=== PATIENT | male | born 1985 | race African-American/Black ===

== ENCOUNTER 2016-08-27 14:39 | Inpatient (IN) | payer MEDICAID, OTHER ==
[~2016-08-27] VITALS: Ht 165.1 cm; Wt 87.7 kg
[~2016-08-27 14:39] MED LIST: AMLO2.5T PO; MIRT30 PO; RISP1TAB89 PO
[2016-08-27 15:23] LABS: BASOPHILS % (AUTO) 0.3 % (0.0-2.0); EOSINOPHILS % (AUTO) 0.2 % (1.0-6.0); HEMATOCRIT 52.8 % (41-53); HEMOGLOBIN 17.8 g/dL (13.5-17.5); LYMPHOCYTES # (AUTO) 1.6 K/uL (1.0-4.8); LYMPHOCYTES % (AUTO) 25.6 % (22.0-44.0); MEAN CORPUSCULAR HEMOGLOBIN 30.7 pg (26.0-34.0); MEAN CORPUSCULAR HGB CONC 33.7 G/dL (31.0-37.0); MEAN CORPUSCULAR VOLUME 91 fL (80-100); MONOCYTES # (AUTO) 0.5 K/uL (0.1-1.0); MONOCYTES % (AUTO) 8.9 % (2.0-9.0); PLATELET COUNT (AUTO) 294 K/uL (150-450); RED BLOOD CELL COUNT(AUTO) 5.79 MIL/uL (4.50-5.90); WHITE BLOOD COUNT (AUTO) 6.1 K/uL (4.5-11.0)
[2016-08-27 15:30] LABS: ANION GAP 11 mmol/L (8-16); CALCIUM, TOTAL 9.3 mg/dL (8.8-10.5); CARBON DIOXIDE 30 mmol/L (22-29); CHLORIDE 100 mmol/L (98-107); CREATININE 1.02 mg/dL (0.60-1.30); GLOMERULAR FILTR. RATE CALC > 60 mL/min (>60); POTASSIUM 3.1 mmol/L (3.5-5.1); SODIUM SERUM 141 mmol/L (136-145); UREA NITROGEN, BLOOD 8 mg/dL (7-18)
[2016-08-27 15:34] LABS: ALANINE AMINOTRANSFERASE 61 U/L (12-78); ALBUMIN 4.4 g/dL (3.4-5.0); ASPARTATE AMINOTRANSFERASE 28 U/L (15-37); BILIRUBIN,TOTAL 0.7 mg/dL (0.1-1.0); TOTAL PROTEIN, SERUM 8.3 g/dL (6.4-8.2)
[2016-08-27] MEDS ORDERED: HALOPERIDOL LACTATE 5 MG/ML VIAL IM ONE (17:00)
[2016-08-27] MEDS ORDERED: LORazepam 2 MG/ML VIAL IM ONE (17:00)
[2016-08-27] MEDS ORDERED: ZOLPIDEM TARTRATE 10 MG TABLET PO PRN (17:30)
[2016-08-27] MEDS ORDERED: LORazepam 2 MG TABLET PO PRN (17:30)
[2016-08-27] MEDS ORDERED: HALOPERIDOL 5 MG TABLET PO PRN (17:30)
[2016-08-28 11:05] VITALS: BP 121/78
[2016-08-28] MEDS ORDERED: INFLUENZA VIRUS VACCINE QVS 2016-17 (3YR+)/PF 60 MCG/0.5 ML SYRINGE IM ONE (11:15)
[2016-08-28 16:45] VITALS: BP 132/77
[2016-08-28] MEDS: RisperiDONE 3 MG TABLET PO SCH (19:14)
[2016-08-29 08:30] VITALS: BP 132/90
[2016-08-29] MEDS ORDERED: MAG HYDROX/AL HYDROX/SIMETH ES 30 ML SUSPENSION UDCUP PO PRN (09:15)
[2016-08-29] MEDS ORDERED: CloNIDine HCL 0.1 MG TABLET PO PRN (09:15)
[2016-08-29] MEDS ORDERED: IBUPROFEN 600 MG TABLET PO PRN (09:15)
[2016-08-29] MEDS ORDERED: PETROLATUM,WHITE 71 GM JELLY TP PRN (09:15)
[2016-08-29] MEDS ORDERED: POTASSIUM CHLORIDE 20 MEQ ER TABLET PO ONE (09:15)
[2016-08-29] MEDS ORDERED: MAGNESIUM HYDROXIDE SUSPENSION 30 ML UDCUP PO PRN (09:15)
[2016-08-29] MEDS ORDERED: ONDANSETRON HCL 4 MG TABLET PO PRN (09:15)
[2016-08-29] MEDS ORDERED: BENZOCAINE/MENTHOL LOZENGE [8 LOZENGES/PACKET] MM PRN (09:15)
[2016-08-29] MEDS ORDERED: ACETAMINOPHEN 325 MG TABLET PO PRN (09:15)
[2016-08-29] MEDS ORDERED: BACITRACIN 28.4 GM OINTMENT TP PRN (09:15)
[2016-08-29] MEDS ORDERED: LOPERAMIDE HCL 2 MG CAPSULE PO PRN (09:15)
[2016-08-29] MEDS ORDERED: ALBUTEROL SULFATE HFA 90 MCG/PUFF 8 GM INHALER IH PRN (09:15)
[2016-08-29] MEDS: RisperiDONE 3 MG TABLET PO SCH ×2 (11:16→17:50)
[2016-08-30 08:06] VITALS: BP 128/97
[2016-08-30] MEDS: RisperiDONE 3 MG TABLET PO SCH ×2 (09:03→16:48)
[2016-08-30 16:16] VITALS: BP 114/72
[2016-08-31 08:08] VITALS: BP 150/73
[2016-08-31] MEDS: RisperiDONE 3 MG TABLET PO SCH ×2 (09:07→17:41)
[2016-08-31 16:00] VITALS: BP 127/93
[2016-09-01 08:40] VITALS: BP 126/83
[2016-09-01] MEDS: RisperiDONE 3 MG TABLET PO SCH ×2 (13:20→16:33)
[2016-09-01] MEDS ORDERED: RISP3 PO (14:53)
== END 2016-09-01 16:30 | disposition home or self-care (01) | DRG 750 ==
LOC: EMS 14:42 → 3EC 08-28 08:15 → 3EI 08-29 18:00
PROVIDERS: ADMIT Psychiatry & Neurology Psychiatry; ATTEND Psychiatry & Neurology Psychiatry
DX: F20.0 Paranoid schizophrenia (principal); E11.9 Type 2 diabetes mellitus without complications; I10 Essential (primary) hypertension; F32.9 Major depressive disorder, single episode, unspecified; F17.200 Nicotine dependence, unspecified, uncomplicated; E87.6 Hypokalemia; G47.00 Insomnia, unspecified; Z91.14 Patient's other noncompliance with medication regimen; Z72.89 Other problems related to lifestyle; Z71.41 Alcohol abuse counseling and surveillance of alcoholic; Z28.21 Immunization not carried out because of patient refusal; Z71.6 Tobacco abuse counseling
CPT/HCPCS: 84132; 96372; 99285; G0480; J1630; J2060; J3535

== ENCOUNTER 2017-02-14 16:42 | Emergency (ER) | payer MEDICARE, OTHER ==
[~2017-02-14] VITALS: Ht 167.6 cm; Wt 77.3 kg
[~2017-02-14 16:42] MED LIST changes: -AMLO2.5T PO; +MIRT15 PO; -MIRT30 PO; +OLAN5TAB40 PO; -RISP1TAB89 PO
[2017-02-14] MEDS ORDERED: CLON.5 PO (16:46)
[2017-02-14 17:07] LABS: GLUCOSE,POINT OF CARE 131 MG/DL (70-110)
[2017-02-14] MEDS ORDERED: SODIUM CHLORIDE 0.9% 1,000 ML IV ONE (17:15)
[2017-02-14] MEDS ORDERED: LORazepam 2 MG/ML VIAL IVP ONE ×2 (17:15→18:30)
[2017-02-14 17:23] LABS: BASOPHILS % (AUTO) 0.1 % (0.0-2.0); EOSINOPHILS % (AUTO) 0.1 % (1.0-6.0); HEMOGLOBIN 16.6 g/dL (13.5-17.5); LYMPHOCYTES # (AUTO) 1.2 K/uL (1.0-4.8); LYMPHOCYTES % (AUTO) 11.5 % (22.0-44.0); MEAN CORPUSCULAR HEMOGLOBIN 32.2 pg (26.0-34.0); MEAN CORPUSCULAR HGB CONC 35.4 G/dL (31.0-37.0); MEAN CORPUSCULAR VOLUME 91 fL (80-100); MONOCYTES # (AUTO) 0.6 K/uL (0.1-1.0); MONOCYTES % (AUTO) 5.4 % (2.0-9.0); NEUTROPHILS # (AUTO) 8.9 K/uL (1.8-7.7); NEUTROPHILS % (AUTO) 82.9 % (40.0-70.0); PLATELET COUNT (AUTO) 234 K/uL (150-450); RED BLOOD CELL COUNT(AUTO) 5.17 MIL/uL (4.50-5.90); RED CELL DISTRIBUTION WIDTH 12.9 % (11.5-14.5); WHITE BLOOD COUNT (AUTO) 10.7 K/uL (4.5-11.0)
[2017-02-14 17:34] LABS: ANION GAP 11 mmol/L (8-16); CALCIUM, TOTAL 8.9 mg/dL (8.8-10.5); CARBON DIOXIDE 28 mmol/L (22-29); CHLORIDE 105 mmol/L (98-107); CREATININE 0.94 mg/dL (0.60-1.30); GLOMERULAR FILTR. RATE CALC > 60 mL/min (>60); POTASSIUM 3.3 mmol/L (3.5-5.1); SODIUM SERUM 144 mmol/L (136-145); UREA NITROGEN, BLOOD 8 mg/dL (7-18)
[2017-02-14 17:43] LABS: LACTIC ACID 1.5 mmol/L (0.4-2.0)
[2017-02-14 17:45] LABS: AMMONIA 27 umol/L (11-32)
[2017-02-14 17:46] LABS: TROPONIN I < 0.02 ng/mL (0.00-0.05)
[2017-02-14 17:59] LABS: ALANINE AMINOTRANSFERASE 18 U/L (12-78); ALBUMIN 4.3 g/dL (3.4-5.0); ASPARTATE AMINOTRANSFERASE 17 U/L (15-37); BILIRUBIN,TOTAL 0.4 mg/dL (0.1-1.0); CREATINE KINASE, TOTAL 248 U/L (39-308); TOTAL PROTEIN, SERUM 7.6 g/dL (6.4-8.2)
[2017-02-14 18:00] LABS: ACETAMINOPHEN < 2 mcg/mL (10-30); CREATINE KINASE MB < 0.5 ng/mL (0-5)
[2017-02-14 18:02] LABS: APPEARANCE,URINE CLEAR (CLEAR); GLUCOSE, URINE (UA) NEGATIVE (NEGATIVE); KETONES,URINE TRACE mg/dL (NEGATIVE); LEUKOCYTE ESTERASE ,URINE TRACE (NEGATIVE); OCCULT BLOOD,URINE NEGATIVE (NEGATIVE); PROTEIN,URINE NEGATIVE (NEGATIVE)
[2017-02-14 18:03] LABS: RBC,URINE 0-2 /HPF (0-2); SQUAMOUS EPITHELIAL CELL,UR Few /LPF (None Seen); WBC,URINE 0-2 /HPF (0-5)
[2017-02-14 19:59] VITALS: BP 136/96
== END 2017-02-14 20:06 | disposition home or self-care (01) ==
LOC: EMS 16:44
DX: F20.9 Schizophrenia, unspecified (principal); R41.82 Altered mental status, unspecified; E11.9 Type 2 diabetes mellitus without complications; F41.9 Anxiety disorder, unspecified; I10 Essential (primary) hypertension
CPT/HCPCS: 36415; 51701; 70450; 80053; 80307; 81001; 82140; 82550; 82553; 82948; 82962; 83605; 83690; 84443; 84484; 85025; 93005; 96361; 96374; 96376; 99285; G0480; J2060; J7030; G0481

== ENCOUNTER 2017-06-21 19:44 | Emergency (ER) | payer MEDICARE, OTHER ==
[~2017-06-21] VITALS: Ht 165.1 cm; Wt 95.0 kg
[~2017-06-21 19:44] MED LIST changes: +CLON.5 PO
[2017-06-21 21:27] LABS: BASOPHILS # (AUTO) 0.03 K/uL (0.00-0.20); BASOPHILS % (AUTO) 0.3 % (0.0-2.0); EOSINOPHILS # (AUTO) 0.01 K/uL (0.00-0.70); EOSINOPHILS % (AUTO) 0.09 % (1.0-6.0); HEMATOCRIT 50.8 % (41-53); HEMOGLOBIN 17.6 g/dL (13.5-17.5); LYMPHOCYTES # (AUTO) 1.2 K/uL (1.0-4.8); LYMPHOCYTES % (AUTO) 14.4 % (22.0-44.0); MEAN CORPUSCULAR HEMOGLOBIN 31.9 pg (26.0-34.0); MEAN CORPUSCULAR HGB CONC 34.7 G/dL (31.0-37.0); MEAN CORPUSCULAR VOLUME 92 fL (80-100); MONOCYTES # (AUTO) 0.6 K/uL (0.1-1.0); MONOCYTES % (AUTO) 6.9 % (2.0-9.0); NEUTROPHILS # (AUTO) 6.3 K/uL (1.8-7.7); NEUTROPHILS % (AUTO) 78.2 % (40.0-70.0); PLATELET COUNT (AUTO) 270 K/uL (150-450); RED BLOOD CELL COUNT(AUTO) 5.51 MIL/uL (4.50-5.90); RED CELL DISTRIBUTION WIDTH 15.1 % (11.5-14.5)
[2017-06-21 21:39] LABS: ANION GAP 8 mmol/L (8-16); CALCIUM, TOTAL 8.7 mg/dL (8.8-10.5); CARBON DIOXIDE 28 mmol/L (22-29); CHLORIDE 103 mmol/L (98-107); CREATININE 1.52 mg/dL (0.60-1.30); GLOMERULAR FILTR. RATE CALC > 60 mL/min (>60); GLUCOSE,RANDOM 106 mg/dL (70-110); POTASSIUM 3.8 mmol/L (3.5-5.1); SODIUM SERUM 139 mmol/L (136-145); UREA NITROGEN, BLOOD 13 mg/dL (7-18)
[2017-06-21 21:40] LABS: INR 1.1 (0.9-1.1); PROTHROMBIN TIME 11.4 SEC (9.4-11.6)
[2017-06-21 21:43] LABS: AMMONIA 19 umol/L (11-32)
[2017-06-21] MEDS ORDERED: LORazepam 2 MG/ML VIAL IVP ONE (21:45)
[2017-06-21 21:46] LABS: ALANINE AMINOTRANSFERASE 20 U/L (12-78); ALBUMIN 3.9 g/dL (3.4-5.0); ALKALINE PHOSPHATASE 73 U/L (46-116); ASPARTATE AMINOTRANSFERASE 16 U/L (15-37); BILIRUBIN,TOTAL 0.4 mg/dL (0.1-1.0); CREATINE KINASE, TOTAL 103 U/L (39-308); TOTAL PROTEIN, SERUM 7.3 g/dL (6.4-8.2)
[2017-06-21 21:52] LABS: TROPONIN I < 0.02 ng/mL (0.00-0.05)
[2017-06-21] MEDS ORDERED: SODIUM CHLORIDE 0.9% 1,000 ML IV ONE (22:00)
[2017-06-22 01:03] LABS: AMPHET/METH SCREEN,URINE NEGATIVE (NEGATIVE); BARBITURATE SCREEN, URINE NEGATIVE (NEGATIVE); BENZODIAZEPINES SCREEN,URINE NEGATIVE (NEGATIVE); CANNABINOID SCREEN,URINE NEGATIVE (NEGATIVE); COCAINE SCREEN,URINE NEGATIVE (NEGATIVE); METHADONE SCREEN, URINE NEGATIVE (NEGATIVE); OPIATE SCREEN,URINE NEGATIVE (NEGATIVE)
[2017-06-22 01:04] LABS: PHENCYCLIDINE SCREEN,URINE NEGATIVE (NEGATIVE)
[2017-06-22 01:13] LABS: APPEARANCE,URINE CLEAR (CLEAR); BILIRUBIN,URINE NEGATIVE (NEGATIVE); GLUCOSE, URINE (UA) NEGATIVE (NEGATIVE); KETONES,URINE NEGATIVE (NEGATIVE); LEUKOCYTE ESTERASE ,URINE NEGATIVE (NEGATIVE); NITRATE,URINE NEGATIVE (NEGATIVE); OCCULT BLOOD,URINE NEGATIVE (NEGATIVE); PROTEIN,URINE NEGATIVE (NEGATIVE)
[2017-06-22 02:29] VITALS: BP 136/65
== END 2017-06-22 02:47 | disposition home or self-care (01) ==
LOC: EMS 19:46
DX: F20.2 Catatonic schizophrenia (principal); F94.0 Selective mutism; R79.89 Other specified abnormal findings of blood chemistry; F41.9 Anxiety disorder, unspecified; E11.9 Type 2 diabetes mellitus without complications; F20.9 Schizophrenia, unspecified; I10 Essential (primary) hypertension
CPT/HCPCS: 36415; 70450; 71045; 80053; 80307; 81003; 82140; 82550; 82962; 84484; 85025; 85610; 85730; 93005; 96361; 96374; 99285; J2060; J7030

== ENCOUNTER 2017-07-14 12:40 | Emergency (ER) | payer MEDICARE ==
[~2017-07-14] VITALS: Ht 180.3 cm; Wt 77.3 kg
[2017-07-14 14:35] LABS: BASOPHILS % (AUTO) 0.2 % (0.0-2.0); EOSINOPHILS % (AUTO) 0.1 % (1.0-6.0); HEMATOCRIT 54.4 % (41-53); LYMPHOCYTES % (AUTO) 17.7 % (22.0-44.0); MEAN CORPUSCULAR HEMOGLOBIN 31.3 pg (26.0-34.0); MEAN CORPUSCULAR VOLUME 89 fL (80-100); MONOCYTES # (AUTO) 0.5 K/uL (0.1-1.0); NEUTROPHILS # (AUTO) 4.2 K/uL (1.8-7.7); PLATELET COUNT (AUTO) 287 K/uL (150-450); RED CELL DISTRIBUTION WIDTH 15.4 % (11.5-14.5)
[2017-07-14 14:41] LABS: HEMOGLOBIN 19.1 g/dL (13.5-17.5)
[2017-07-14 14:43] LABS: ANION GAP 12 mmol/L (8-16); CALCIUM, TOTAL 9.3 mg/dL (8.8-10.5); CARBON DIOXIDE 25 mmol/L (22-29); CHLORIDE 102 mmol/L (98-107); CREATININE 0.96 mg/dL (0.60-1.30); GLOMERULAR FILTR. RATE CALC > 60 mL/min (>60); GLUCOSE,RANDOM 158 mg/dL (70-110); POTASSIUM 3.3 mmol/L (3.5-5.1); SODIUM SERUM 139 mmol/L (136-145); UREA NITROGEN, BLOOD 8 mg/dL (7-18)
[2017-07-14 14:49] LABS: ALANINE AMINOTRANSFERASE 20 U/L (12-78); ALBUMIN 4.2 g/dL (3.4-5.0); ALKALINE PHOSPHATASE 68 U/L (46-116); ASPARTATE AMINOTRANSFERASE 28 U/L (15-37); BILIRUBIN,TOTAL 0.7 mg/dL (0.1-1.0)
[2017-07-14] MEDS ORDERED: LORazepam 2 MG TABLET PO ONE (15:30)
[2017-07-14] MEDS ORDERED: HALOPERIDOL 5 MG TABLET PO ONE (15:30)
[2017-07-14 15:38] VITALS: BP 139/83
== END 2017-07-14 16:15 | disposition home or self-care (01) ==
LOC: EMS 12:42 → EEVIPCON 12:42 → EMS 16:15
DX: F20.9 Schizophrenia, unspecified (principal); D75.1 Secondary polycythemia; E11.9 Type 2 diabetes mellitus without complications; F41.9 Anxiety disorder, unspecified; I10 Essential (primary) hypertension
CPT/HCPCS: 36415; 80053; 85025; 99284; G0480

== ENCOUNTER 2017-08-04 15:56 | Emergency (ER) | payer MEDICARE ==
[~2017-08-04] VITALS: Ht 165.1 cm; Wt 95.0 kg
[2017-08-04] MEDS ORDERED: LORazepam 2 MG/ML VIAL IVP ONE (16:45)
[2017-08-04 17:12] LABS: BASOPHILS % (AUTO) 0.3 % (0.0-2.0); EOSINOPHILS % (AUTO) 0.1 % (1.0-6.0); LYMPHOCYTES # (AUTO) 1.6 K/uL (1.0-4.8); LYMPHOCYTES % (AUTO) 17.8 % (22.0-44.0); MEAN CORPUSCULAR HEMOGLOBIN 31.3 pg (26.0-34.0); MEAN CORPUSCULAR HGB CONC 35.3 G/dL (31.0-37.0); MEAN CORPUSCULAR VOLUME 89 fL (80-100); MONOCYTES # (AUTO) 0.7 K/uL (0.1-1.0); MONOCYTES % (AUTO) 7.2 % (2.0-9.0); NEUTROPHILS # (AUTO) 6.9 K/uL (1.8-7.7); NEUTROPHILS % (AUTO) 74.6 % (40.0-70.0); PLATELET COUNT (AUTO) 262 K/uL (150-450); RED BLOOD CELL COUNT(AUTO) 6.42 MIL/uL (4.50-5.90); RED CELL DISTRIBUTION WIDTH 15.8 % (11.5-14.5)
[2017-08-04 17:25] LABS: HEMOGLOBIN 20.1 g/dL (13.5-17.5)
[2017-08-04 17:38] LABS: APPEARANCE,URINE CLEAR (CLEAR); BILIRUBIN,URINE NEGATIVE (NEGATIVE); GLUCOSE, URINE (UA) NEGATIVE (NEGATIVE); KETONES,URINE NEGATIVE (NEGATIVE); LEUKOCYTE ESTERASE ,URINE TRACE (NEGATIVE); NITRATE,URINE NEGATIVE (NEGATIVE); OCCULT BLOOD,URINE NEGATIVE (NEGATIVE); PH,URINE 6.5 (5.0-8.0); PROTEIN,URINE NEGATIVE (NEGATIVE); UROBILINOGEN,URINE 0.2 mg/dL (<=1.0)
[2017-08-04 17:38] LABS: ANION GAP 11 mmol/L (8-16); CALCIUM, TOTAL 9.4 mg/dL (8.8-10.5); CARBON DIOXIDE 26 mmol/L (22-29); CHLORIDE 102 mmol/L (98-107); CREATININE 0.92 mg/dL (0.60-1.30); GLOMERULAR FILTR. RATE CALC > 60 mL/min (>60); GLUCOSE,RANDOM 95 mg/dL (70-110); POTASSIUM 3.8 mmol/L (3.5-5.1); SODIUM SERUM 139 mmol/L (136-145); UREA NITROGEN, BLOOD 13 mg/dL (7-18)
[2017-08-04 17:45] LABS: ALANINE AMINOTRANSFERASE 17 U/L (12-78); ALBUMIN 4.5 g/dL (3.4-5.0); ALKALINE PHOSPHATASE 74 U/L (46-116); ASPARTATE AMINOTRANSFERASE 21 U/L (15-37); BILIRUBIN,TOTAL 0.4 mg/dL (0.1-1.0); PHENYTOIN (DILANTIN) 1.3 mcg/mL (10.0-20.0); TOTAL PROTEIN, SERUM 8.5 g/dL (6.4-8.2)
[2017-08-04] MEDS ORDERED: MIRT15 PO (17:51)
[2017-08-04] MEDS ORDERED: OLAN5TAB40 PO (17:51)
[2017-08-04] MEDS ORDERED: CLON.5 PO (17:51)
[2017-08-04 17:53] LABS: B-TYPE NATRIURETIC PEPTIDE 84 pg/mL (0-100)
[2017-08-04 17:55] LABS: VALPROIC ACID < 2 mcg/mL (50-100)
[2017-08-04 17:59] LABS: RBC,URINE None Seen /HPF (0-2)
[2017-08-04 18:00] LABS: BACTERIA,URINE None Seen /HPF (None Seen); SQUAMOUS EPITHELIAL CELL,UR Rare /LPF (None Seen)
[2017-08-04] MEDS ORDERED: SODIUM CHLORIDE 0.9% 1,000 ML IV ONE (18:15)
[2017-08-04 19:17] VITALS: BP 163/100
== END 2017-08-04 19:25 | disposition home or self-care (01) ==
LOC: MERGE 16:00 → EDBD 16:00 → EMS 16:00
DX: F20.2 Catatonic schizophrenia (principal); F94.0 Selective mutism; F43.20 Adjustment disorder, unspecified; R56.9 Unspecified convulsions; Z79.899 Other long term (current) drug therapy
CPT/HCPCS: 36415; 80053; 80164; 80185; 81001; 82962; 83880; 85025; 87086; 96374; 99285; J2060; J7030

== ENCOUNTER 2017-08-13 20:58 | Emergency (ER) | payer MEDICARE ==
[~2017-08-13] VITALS: Ht 165.1 cm; Wt 86.4 kg
[2017-08-13 21:37] LABS: BASOPHILS % (AUTO) 0.3 % (0.0-2.0); EOSINOPHILS % (AUTO) 0.2 % (1.0-6.0); HEMATOCRIT 51.1 % (41-53); HEMOGLOBIN 18.1 g/dL (13.5-17.5); LYMPHOCYTES # (AUTO) 1.7 K/uL (1.0-4.8); LYMPHOCYTES % (AUTO) 23.9 % (22.0-44.0); MEAN CORPUSCULAR HEMOGLOBIN 31.5 pg (26.0-34.0); MEAN CORPUSCULAR HGB CONC 35.5 G/dL (31.0-37.0); MEAN CORPUSCULAR VOLUME 89 fL (80-100); MONOCYTES # (AUTO) 0.7 K/uL (0.1-1.0); NEUTROPHILS # (AUTO) 4.7 K/uL (1.8-7.7); NEUTROPHILS % (AUTO) 65.6 % (40.0-70.0); PLATELET COUNT (AUTO) 235 K/uL (150-450); RED BLOOD CELL COUNT(AUTO) 5.75 MIL/uL (4.50-5.90); RED CELL DISTRIBUTION WIDTH 15.8 % (11.5-14.5)
[2017-08-13 21:54] LABS: ANION GAP 11 mmol/L (8-16); CARBON DIOXIDE 24 mmol/L (22-29); CHLORIDE 103 mmol/L (98-107); GLOMERULAR FILTR. RATE CALC > 60 mL/min (>60); GLUCOSE,RANDOM 109 mg/dL (70-110); POTASSIUM 3.4 mmol/L (3.5-5.1); SODIUM SERUM 138 mmol/L (136-145); UREA NITROGEN, BLOOD 12 mg/dL (7-18)
[2017-08-13 22:06] LABS: ALANINE AMINOTRANSFERASE 12 U/L (12-78); ALBUMIN 3.9 g/dL (3.4-5.0); ALKALINE PHOSPHATASE 59 U/L (46-116); ASPARTATE AMINOTRANSFERASE 12 U/L (15-37); BILIRUBIN,TOTAL 0.4 mg/dL (0.1-1.0); TOTAL PROTEIN, SERUM 7.4 g/dL (6.4-8.2)
[2017-08-13] MEDS ORDERED: LORazepam 1 MG TABLET PO ONE (22:30)
[2017-08-13 22:35] LABS: AMPHET/METH SCREEN,URINE NEGATIVE (NEGATIVE); BARBITURATE SCREEN, URINE NEGATIVE (NEGATIVE); BENZODIAZEPINES SCREEN,URINE NEGATIVE (NEGATIVE); CANNABINOID SCREEN,URINE NEGATIVE (NEGATIVE); COCAINE SCREEN,URINE NEGATIVE (NEGATIVE); METHADONE SCREEN, URINE NEGATIVE (NEGATIVE); OPIATE SCREEN,URINE NEGATIVE (NEGATIVE)
[2017-08-13 22:36] LABS: PHENCYCLIDINE SCREEN,URINE NEGATIVE (NEGATIVE)
[2017-08-13 22:37] VITALS: BP 165/100
== END 2017-08-13 23:04 | disposition home or self-care (01) ==
LOC: EMS 20:59
DX: F41.9 Anxiety disorder, unspecified (principal); F20.9 Schizophrenia, unspecified; E11.9 Type 2 diabetes mellitus without complications; I10 Essential (primary) hypertension
CPT/HCPCS: 36415; 80053; 80307; 85025; 99284; G0480

== ENCOUNTER 2017-10-03 19:30 | Inpatient (IN) | payer MEDICARE ==
[~2017-10-03] VITALS: Ht 165.1 cm; Wt 76.8 kg
[2017-10-03 20:37] LABS: BASOPHILS % (AUTO) 0.3 % (0.0-2.0); EOSINOPHILS % (AUTO) 0.6 % (1.0-6.0); LYMPHOCYTES # (AUTO) 1.5 K/uL (1.0-4.8); LYMPHOCYTES % (AUTO) 17.7 % (22.0-44.0); MEAN CORPUSCULAR HEMOGLOBIN 31.1 pg (26.0-34.0); MEAN CORPUSCULAR HGB CONC 35.1 G/dL (31.0-37.0); MEAN CORPUSCULAR VOLUME 89 fL (80-100); MONOCYTES # (AUTO) 0.8 K/uL (0.1-1.0); MONOCYTES % (AUTO) 9.5 % (2.0-9.0); NEUTROPHILS % (AUTO) 71.9 % (40.0-70.0); PLATELET COUNT (AUTO) 248 K/uL (150-450); RED CELL DISTRIBUTION WIDTH 16.9 % (11.5-14.5)
[2017-10-03 20:47] LABS: ANION GAP 7 mmol/L (8-16); CARBON DIOXIDE 28 mmol/L (22-29); CHLORIDE 102 mmol/L (98-107); CREATININE 1.26 mg/dL (0.60-1.30); GLOMERULAR FILTR. RATE CALC > 60 mL/min (>60); GLUCOSE,RANDOM 114 mg/dL (70-110); POTASSIUM 4.2 mmol/L (3.5-5.1); SODIUM SERUM 137 mmol/L (136-145); UREA NITROGEN, BLOOD 16 mg/dL (7-18)
[2017-10-03 20:51] LABS: ALANINE AMINOTRANSFERASE 30 U/L (12-78); ALBUMIN 4.1 g/dL (3.4-5.0); ALKALINE PHOSPHATASE 88 U/L (46-116); ASPARTATE AMINOTRANSFERASE 18 U/L (15-37); BILIRUBIN,TOTAL 0.6 mg/dL (0.1-1.0); TOTAL PROTEIN, SERUM 7.9 g/dL (6.4-8.2)
[2017-10-03 20:53] LABS: HEMOGLOBIN 19.3 g/dL (13.5-17.5)
[2017-10-03 21:58] LABS: AMPHET/METH SCREEN,URINE NEGATIVE (NEGATIVE); BARBITURATE SCREEN, URINE NEGATIVE (NEGATIVE); BENZODIAZEPINES SCREEN,URINE NEGATIVE (NEGATIVE); CANNABINOID SCREEN,URINE NEGATIVE (NEGATIVE); COCAINE SCREEN,URINE NEGATIVE (NEGATIVE); METHADONE SCREEN, URINE NEGATIVE (NEGATIVE); OPIATE SCREEN,URINE NEGATIVE (NEGATIVE)
[2017-10-03 21:59] LABS: PHENCYCLIDINE SCREEN,URINE NEGATIVE (NEGATIVE)
[2017-10-03] MEDS ORDERED: LORazepam 2 MG TABLET PO ONE (23:15)
[2017-10-04] MEDS ORDERED: SODIUM CHLORIDE 0.9% 2,000 ML IV ONE (01:30)
[2017-10-04 03:57] LABS: HEMATOCRIT 52.4 % (41-53); HEMOGLOBIN 18.2 g/dL (13.5-17.5)
[2017-10-04] MEDS ORDERED: ZOLPIDEM TARTRATE 10 MG TABLET PO PRN (04:00)
[2017-10-04 05:30] VITALS: BP 140/90
[2017-10-04] MEDS: LORazepam 2 MG TABLET PO PRN ×2 (06:12→13:31)
[2017-10-04] MEDS ORDERED: PNEUMOCOCCAL VACCINE POLYVALENT 0.5 ML VIAL [PPSV23] IM ONE (06:15)
[2017-10-04 08:36] VITALS: BP 130/85
[2017-10-04] MEDS ORDERED: ONDANSETRON HCL 4 MG TABLET PO PRN (15:30)
[2017-10-04] MEDS ORDERED: PETROLATUM,WHITE 71 GM JELLY TP PRN (15:30)
[2017-10-04] MEDS ORDERED: ACETAMINOPHEN 325 MG TABLET PO PRN (15:30)
[2017-10-04] MEDS ORDERED: CloNIDine HCL 0.1 MG TABLET PO PRN (15:30)
[2017-10-04] MEDS ORDERED: MAG HYDROX/AL HYDROX/SIMETH ES 30 ML SUSPENSION UDCUP PO PRN (15:30)
[2017-10-04] MEDS ORDERED: IBUPROFEN 600 MG TABLET PO PRN (15:30)
[2017-10-04] MEDS ORDERED: ALBUTEROL SULFATE HFA 90 MCG/PUFF 8 GM INHALER IH PRN (15:30)
[2017-10-04] MEDS ORDERED: BENZOCAINE/MENTHOL LOZENGE MM PRN (15:30)
[2017-10-04] MEDS ORDERED: MAGNESIUM HYDROXIDE SUSPENSION 30 ML UDCUP PO PRN (15:30)
[2017-10-04] MEDS ORDERED: LOPERAMIDE HCL 2 MG CAPSULE PO PRN (15:30)
[2017-10-04] MEDS ORDERED: BACITRACIN 28.4 GM OINTMENT TP PRN (15:30)
[2017-10-04 16:32] VITALS: BP 139/87
[2017-10-04] MEDS ORDERED: ZOLPIDEM TARTRATE 5 MG TABLET PO PRN (21:00)
[2017-10-04] MEDS: MIRTAZAPINE 15 MG TABLET PO SCH (21:12)
[2017-10-05 06:21] VITALS: BP 114/74
[2017-10-05] MEDS: CHOLECALCIFEROL (VIT D3) 1,000 UNITS TABLET PO SCH (08:19)
[2017-10-05] MEDS: TRIHEXYPHENIDYL HCL 2 MG TABLET PO SCH ×2 (08:19→16:39)
[2017-10-05] MEDS: RisperiDONE 1 MG TABLET PO SCH ×2 (08:19→16:39)
[2017-10-05 08:25] VITALS: BP 136/87
[2017-10-05] MEDS: LORazepam 2 MG TABLET PO PRN ×2 (11:27→19:56)
[2017-10-05] MEDS ORDERED: LORazepam 2 MG/ML VIAL ONE (12:00)
[2017-10-05] MEDS ORDERED: DiphenhydrAMINE HCL 50 MG/ML VIAL ONE (12:00)
[2017-10-05 16:25] VITALS: BP 163/112
[2017-10-05] MEDS: LISINOPRIL 20 MG TABLET PO SCH (18:26)
[2017-10-05 19:52] VITALS: BP 154/89
[2017-10-05] MEDS: MIRTAZAPINE 15 MG TABLET PO SCH (20:37)
[2017-10-05 20:59] VITALS: BP 149/90
[2017-10-05 21:42] VITALS: BP 118/72
[2017-10-06 06:34] VITALS: BP 118/64
[2017-10-06] MEDS: LISINOPRIL 20 MG TABLET PO SCH (08:04)
[2017-10-06] MEDS: RisperiDONE 1 MG TABLET PO SCH ×2 (08:04→16:38)
[2017-10-06] MEDS: TRIHEXYPHENIDYL HCL 2 MG TABLET PO SCH ×2 (08:04→16:38)
[2017-10-06] MEDS: CHOLECALCIFEROL (VIT D3) 1,000 UNITS TABLET PO SCH (08:04)
[2017-10-06 08:28] VITALS: BP_SYST 103; BP_SYST 141; BP_DIAS 63; BP_DIAS 99
[2017-10-06 08:45] LABS: BASOPHILS % (AUTO) 0.2 % (0.0-2.0); EOSINOPHILS % (AUTO) 1.9 % (1.0-6.0); HEMATOCRIT 54.6 % (41-53); LYMPHOCYTES # (AUTO) 1.7 K/uL (1.0-4.8); LYMPHOCYTES % (AUTO) 35.2 % (22.0-44.0); MEAN CORPUSCULAR HEMOGLOBIN 31.2 pg (26.0-34.0); MEAN CORPUSCULAR VOLUME 89 fL (80-100); MONOCYTES # (AUTO) 0.6 K/uL (0.1-1.0); MONOCYTES % (AUTO) 11.6 % (2.0-9.0); NEUTROPHILS # (AUTO) 2.5 K/uL (1.8-7.7); NEUTROPHILS % (AUTO) 51.1 % (40.0-70.0); PLATELET COUNT (AUTO) 232 K/uL (150-450); RED BLOOD CELL COUNT(AUTO) 6.13 MIL/uL (4.50-5.90); RED CELL DISTRIBUTION WIDTH 16.6 % (11.5-14.5)
[2017-10-06 08:53] LABS: HEMOGLOBIN 19.1 g/dL (13.5-17.5)
[2017-10-06 10:30] VITALS: BP 103/63
[2017-10-06] MEDS: LORazepam 2 MG TABLET PO PRN (16:07)
[2017-10-06 17:56] VITALS: BP 129/82
[2017-10-06] MEDS: MIRTAZAPINE 15 MG TABLET PO SCH (20:45)
[2017-10-07 06:13] VITALS: BP 106/64
[2017-10-07 08:00] VITALS: BP 110/63
[2017-10-07] MEDS: RisperiDONE 1 MG TABLET PO SCH ×2 (08:13→16:31)
[2017-10-07] MEDS: CHOLECALCIFEROL (VIT D3) 1,000 UNITS TABLET PO SCH (08:13)
[2017-10-07] MEDS: TRIHEXYPHENIDYL HCL 2 MG TABLET PO SCH ×2 (08:13→16:31)
[2017-10-07] MEDS: LISINOPRIL 20 MG TABLET PO SCH (08:13)
[2017-10-07 16:08] VITALS: BP 140/86
[2017-10-07] MEDS: MIRTAZAPINE 15 MG TABLET PO SCH (20:43)
[2017-10-08 05:26] VITALS: BP 121/69
[2017-10-08 09:20] VITALS: BP 119/71
[2017-10-08] MEDS: RisperiDONE 1 MG TABLET PO SCH (09:20)
[2017-10-08] MEDS: CHOLECALCIFEROL (VIT D3) 1,000 UNITS TABLET PO SCH (09:20)
[2017-10-08] MEDS: LISINOPRIL 20 MG TABLET PO SCH (09:20)
[2017-10-08] MEDS: TRIHEXYPHENIDYL HCL 2 MG TABLET PO SCH ×2 (09:20→16:40)
[2017-10-08] MEDS: LORazepam 2 MG TABLET PO PRN (10:42)
[2017-10-08 16:15] VITALS: BP 132/86
[2017-10-08] MEDS: OLANZapine 5 MG TABLET PO SCH (20:35)
[2017-10-08] MEDS: MIRTAZAPINE 15 MG TABLET PO SCH (20:35)
[2017-10-09 07:04] VITALS: BP 126/89
[2017-10-09 08:00] VITALS: BP 108/61
[2017-10-09 08:31] LABS: BAND NEUTROPHILS % (MANUAL) 0 % (0-5)
[2017-10-09 08:35] VITALS: BP 130/72
[2017-10-09] MEDS: CHOLECALCIFEROL (VIT D3) 1,000 UNITS TABLET PO SCH (08:35)
[2017-10-09] MEDS: TRIHEXYPHENIDYL HCL 2 MG TABLET PO SCH ×2 (08:35→16:10)
[2017-10-09] MEDS: LISINOPRIL 20 MG TABLET PO SCH (08:35)
[2017-10-09 09:10] LABS: HEMATOCRIT 54.4 % (41-53); MEAN CORPUSCULAR HEMOGLOBIN 31.6 pg (26.0-34.0); MEAN CORPUSCULAR HGB CONC 35.3 G/dL (31.0-37.0); MEAN CORPUSCULAR VOLUME 89 fL (80-100); PLATELET COUNT (AUTO) 233 K/uL (150-450); RED BLOOD CELL COUNT(AUTO) 6.09 MIL/uL (4.50-5.90); RED CELL DISTRIBUTION WIDTH 16.5 % (11.5-14.5)
[2017-10-09 09:19] LABS: HEMOGLOBIN 18.2 g/dL (13.5-17.5)
[2017-10-09 09:46] LABS: ANION GAP 8 mmol/L (8-16); CALCIUM, TOTAL 9.3 mg/dL (8.8-10.5); CARBON DIOXIDE 30 mmol/L (22-29); CHLORIDE 102 mmol/L (98-107); CREATININE 1.15 mg/dL (0.60-1.30); GLOMERULAR FILTR. RATE CALC > 60 mL/min (>60); GLUCOSE,RANDOM 87 mg/dL (70-110); PHOSPHORUS 5.4 mg/dL (2.5-4.9); SODIUM SERUM 140 mmol/L (136-145); UREA NITROGEN, BLOOD 20 mg/dL (7-18)
[2017-10-09 10:37] LABS: EOSINOPHILS % (MANUAL) 1 % (1-6); LYMPHOCYTES % (MANUAL) 30 % (22-44); MONOCYTES % (MANUAL) 10 % (2-9); SEGMENTED NEUTROPHILS % 59 % (40-70)
[2017-10-09 16:10] VITALS: BP 138/85
[2017-10-09] MEDS: LORazepam 2 MG TABLET PO PRN (16:10)
[2017-10-09] MEDS: MIRTAZAPINE 15 MG TABLET PO SCH (20:05)
[2017-10-09] MEDS: OLANZapine 5 MG TABLET PO SCH (20:06)
[2017-10-10 06:45] VITALS: BP 108/68
[2017-10-10 08:40] VITALS: BP 126/77
[2017-10-10] MEDS: LISINOPRIL 20 MG TABLET PO SCH (08:43)
[2017-10-10] MEDS: CHOLECALCIFEROL (VIT D3) 1,000 UNITS TABLET PO SCH (08:43)
[2017-10-10] MEDS: TRIHEXYPHENIDYL HCL 2 MG TABLET PO SCH ×2 (08:43→16:33)
[2017-10-10 16:17] VITALS: BP 138/97
[2017-10-10] MEDS: MIRTAZAPINE 15 MG TABLET PO SCH (20:44)
[2017-10-10] MEDS: OLANZapine 5 MG TABLET PO SCH (20:44)
[2017-10-11 06:10] VITALS: BP 100/60
[2017-10-11 08:20] VITALS: BP 127/78
[2017-10-11] MEDS: TRIHEXYPHENIDYL HCL 2 MG TABLET PO SCH ×2 (08:23→16:36)
[2017-10-11] MEDS: CHOLECALCIFEROL (VIT D3) 1,000 UNITS TABLET PO SCH (08:23)
[2017-10-11] MEDS: LISINOPRIL 20 MG TABLET PO SCH (08:23)
[2017-10-11 16:04] VITALS: BP 129/88
[2017-10-11] MEDS: MIRTAZAPINE 30 MG TABLET PO SCH (20:36)
[2017-10-11] MEDS: OLANZapine 5 MG TABLET PO SCH (20:36)
[2017-10-12 06:15] VITALS: BP 103/63
[2017-10-12 08:31] VITALS: BP 121/69
[2017-10-12] MEDS: TRIHEXYPHENIDYL HCL 2 MG TABLET PO SCH ×2 (08:46→16:36)
[2017-10-12] MEDS: LISINOPRIL 20 MG TABLET PO SCH (08:46)
[2017-10-12] MEDS: CHOLECALCIFEROL (VIT D3) 1,000 UNITS TABLET PO SCH (08:47)
[2017-10-12 16:05] VITALS: BP 127/85
[2017-10-12] MEDS: LORazepam 2 MG TABLET PO PRN (16:40)
[2017-10-12] MEDS: OLANZapine 10 MG TABLET PO SCH (20:54)
[2017-10-12] MEDS: MIRTAZAPINE 30 MG TABLET PO SCH (20:54)
[2017-10-13 02:25] VITALS: BP 121/83
[2017-10-13 08:20] LABS: BAND NEUTROPHILS % (MANUAL) 0 % (0-5)
[2017-10-13 08:31] VITALS: BP 127/68
[2017-10-13 09:14] LABS: ANION GAP 9 mmol/L (8-16); CALCIUM, TOTAL 9.3 mg/dL (8.8-10.5); CARBON DIOXIDE 28 mmol/L (22-29); CHLORIDE 101 mmol/L (98-107); CREATININE 1.06 mg/dL (0.60-1.30); GLOMERULAR FILTR. RATE CALC > 60 mL/min (>60); GLUCOSE,RANDOM 87 mg/dL (70-110); PHOSPHORUS 5.4 mg/dL (2.5-4.9); POTASSIUM 4.8 mmol/L (3.5-5.1); SODIUM SERUM 138 mmol/L (136-145); UREA NITROGEN, BLOOD 18 mg/dL (7-18)
[2017-10-13 09:29] LABS: MEAN CORPUSCULAR HGB CONC 34.7 G/dL (31.0-37.0); MEAN CORPUSCULAR VOLUME 89 fL (80-100); PLATELET COUNT (AUTO) 224 K/uL (150-450); RED BLOOD CELL COUNT(AUTO) 6.23 MIL/uL (4.50-5.90); RED CELL DISTRIBUTION WIDTH 15.6 % (11.5-14.5)
[2017-10-13 10:27] LABS: HEMATOCRIT 55.7 % (41-53); HEMOGLOBIN 19.3 g/dL (13.5-17.5)
[2017-10-13] MEDS: TRIHEXYPHENIDYL HCL 2 MG TABLET PO SCH ×2 (10:31→17:00)
[2017-10-13] MEDS: LISINOPRIL 20 MG TABLET PO SCH (10:32)
[2017-10-13] MEDS: CHOLECALCIFEROL (VIT D3) 1,000 UNITS TABLET PO SCH (10:32)
[2017-10-13] MEDS: ASPIRIN 81 MG EC TABLET PO SCH (10:32)
[2017-10-13 10:35] LABS: EOSINOPHILS % (MANUAL) 3 % (1-6); LYMPHOCYTES % (MANUAL) 31 % (22-44); MONOCYTES % (MANUAL) 9 % (2-9); SEGMENTED NEUTROPHILS % 57 % (40-70)
[2017-10-13 16:05] VITALS: BP 137/75
[2017-10-13] MEDS: LORazepam 2 MG TABLET PO PRN (16:39)
[2017-10-13] MEDS: MIRTAZAPINE 30 MG TABLET PO SCH (20:48)
[2017-10-13] MEDS: OLANZapine 10 MG TABLET PO SCH (20:49)
[2017-10-14 06:41] VITALS: BP 120/81
[2017-10-14 08:22] VITALS: BP 121/68
[2017-10-14] MEDS: LISINOPRIL 20 MG TABLET PO SCH (08:33)
[2017-10-14] MEDS: ASPIRIN 81 MG EC TABLET PO SCH (08:33)
[2017-10-14] MEDS: TRIHEXYPHENIDYL HCL 2 MG TABLET PO SCH ×2 (08:33→16:15)
[2017-10-14] MEDS: CHOLECALCIFEROL (VIT D3) 1,000 UNITS TABLET PO SCH (08:33)
[2017-10-14 16:07] VITALS: BP 134/86
[2017-10-14] MEDS: OLANZapine 10 MG TABLET PO SCH (20:50)
[2017-10-14] MEDS: MIRTAZAPINE 30 MG TABLET PO SCH (20:50)
[2017-10-15] VITALS (7 sets, daily range): BP systolic 102–163; BP diastolic 63–110
[2017-10-15] MEDS: ASPIRIN 81 MG EC TABLET PO SCH (08:39)
[2017-10-15] MEDS: TRIHEXYPHENIDYL HCL 2 MG TABLET PO SCH ×2 (08:39→16:40)
[2017-10-15] MEDS: LISINOPRIL 20 MG TABLET PO SCH (08:39)
[2017-10-15] MEDS: CHOLECALCIFEROL (VIT D3) 1,000 UNITS TABLET PO SCH (08:39)
[2017-10-15] MEDS ORDERED: PALIPERIDONE PALMITATE 156 MG/ML SYRINGE IM SCH (09:00)
[2017-10-15] MEDS ORDERED: PALI156D IM (14:50)
[2017-10-15] MEDS: HALOPERIDOL 5 MG TABLET PO PRN (17:26)
[2017-10-15] MEDS: LORazepam 2 MG TABLET PO PRN (18:40)
[2017-10-15] MEDS: MIRTAZAPINE 30 MG TABLET PO SCH (20:46)
[2017-10-15] MEDS: OLANZapine 10 MG TABLET PO SCH (20:46)
[2017-10-16 04:30] VITALS: BP 130/86
[2017-10-16] MEDS ORDERED: VITAD1000 PO (04:51)
[2017-10-16] MEDS ORDERED: ASPI81 PO (04:51)
[2017-10-16] MEDS ORDERED: TRIH2TAB3 PO (04:51)
[2017-10-16] MEDS ORDERED: LISI-662 PO (04:51)
[2017-10-16 06:16] VITALS: BP 121/68
[2017-10-16] MEDS: ASPIRIN 81 MG EC TABLET PO SCH (08:20)
[2017-10-16] MEDS: CHOLECALCIFEROL (VIT D3) 1,000 UNITS TABLET PO SCH (08:20)
[2017-10-16] MEDS: TRIHEXYPHENIDYL HCL 2 MG TABLET PO SCH ×2 (08:20→16:37)
[2017-10-16] MEDS: LISINOPRIL 20 MG TABLET PO SCH (08:20)
[2017-10-16 08:35] VITALS: BP 116/67
[2017-10-16 09:26] LABS: ANION GAP 11 mmol/L (8-16); CALCIUM, TOTAL 8.8 mg/dL (8.8-10.5); CARBON DIOXIDE 27 mmol/L (22-29); CHLORIDE 101 mmol/L (98-107); CREATININE 1.07 mg/dL (0.60-1.30); GLOMERULAR FILTR. RATE CALC > 60 mL/min (>60); GLUCOSE,RANDOM 102 mg/dL (70-110); PHOSPHORUS 4.9 mg/dL (2.5-4.9); POTASSIUM 4.6 mmol/L (3.5-5.1); SODIUM SERUM 139 mmol/L (136-145); UREA NITROGEN, BLOOD 16 mg/dL (7-18)
[2017-10-16 09:34] LABS: HEMATOCRIT 54.2 % (41-53); MEAN CORPUSCULAR HEMOGLOBIN 31.4 pg (26.0-34.0); MEAN CORPUSCULAR HGB CONC 35.5 G/dL (31.0-37.0); MEAN CORPUSCULAR VOLUME 89 fL (80-100); PLATELET COUNT (AUTO) 201 K/uL (150-450); RED BLOOD CELL COUNT(AUTO) 6.12 MIL/uL (4.50-5.90)
[2017-10-16 10:09] LABS: BAND NEUTROPHILS % (MANUAL) 1 % (0-5); EOSINOPHILS % (MANUAL) 3 % (1-6); LYMPHOCYTES % (MANUAL) 26 % (22-44); MONOCYTES % (MANUAL) 7 % (2-9); SEGMENTED NEUTROPHILS % 63 % (40-70)
[2017-10-16 12:06] VITALS: BP 114/68
[2017-10-16] MEDS: HALOPERIDOL 5 MG TABLET PO PRN (12:17)
[2017-10-16 16:09] VITALS: BP 119/76
[2017-10-16] MEDS ORDERED: MIRT30 PO (19:01)
[2017-10-16] MEDS ORDERED: OLAN10TA6 PO (19:01)
[2017-10-16] MEDS: MIRTAZAPINE 30 MG TABLET PO SCH (20:07)
[2017-10-16] MEDS: OLANZapine 10 MG TABLET PO SCH (20:07)
[2017-10-16 20:09] VITALS: BP 120/99
[2017-10-17 07:30] LABS: BASOPHILS % (AUTO) 0.2 % (0.0-2.0); EOSINOPHILS % (AUTO) 1.2 % (1.0-6.0); LYMPHOCYTES # (AUTO) 1.7 K/uL (1.0-4.8); LYMPHOCYTES % (AUTO) 30.9 % (22.0-44.0); MEAN CORPUSCULAR HEMOGLOBIN 31.6 pg (26.0-34.0); MEAN CORPUSCULAR HGB CONC 35.7 G/dL (31.0-37.0); MEAN CORPUSCULAR VOLUME 88 fL (80-100); MONOCYTES # (AUTO) 0.6 K/uL (0.1-1.0); MONOCYTES % (AUTO) 10.2 % (2.0-9.0); NEUTROPHILS # (AUTO) 3.2 K/uL (1.8-7.7); NEUTROPHILS % (AUTO) 57.5 % (40.0-70.0); PLATELET COUNT (AUTO) 201 K/uL (150-450); RED BLOOD CELL COUNT(AUTO) 6.28 MIL/uL (4.50-5.90); RED CELL DISTRIBUTION WIDTH 15.4 % (11.5-14.5)
[2017-10-17 07:37] LABS: ANION GAP 7 mmol/L (8-16); CALCIUM, TOTAL 8.7 mg/dL (8.8-10.5); CARBON DIOXIDE 27 mmol/L (22-29); CHLORIDE 101 mmol/L (98-107); GLOMERULAR FILTR. RATE CALC > 60 mL/min (>60); GLUCOSE,RANDOM 96 mg/dL (70-110); PHOSPHORUS 4.3 mg/dL (2.5-4.9); POTASSIUM 4.7 mmol/L (3.5-5.1); SODIUM SERUM 135 mmol/L (136-145); UREA NITROGEN, BLOOD 19 mg/dL (7-18)
[2017-10-17 07:43] LABS: HEMATOCRIT 55.5 % (41-53); HEMOGLOBIN 19.8 g/dL (13.5-17.5)
[2017-10-17 08:30] VITALS: BP 118/71
[2017-10-17] MEDS: TRIHEXYPHENIDYL HCL 2 MG TABLET PO SCH ×2 (09:38→16:16)
[2017-10-17] MEDS: ASPIRIN 81 MG EC TABLET PO SCH (09:38)
[2017-10-17] MEDS: LISINOPRIL 20 MG TABLET PO SCH (09:38)
[2017-10-17] MEDS: CHOLECALCIFEROL (VIT D3) 1,000 UNITS TABLET PO SCH (09:38)
[2017-10-17 16:39] VITALS: BP 118/84
[2017-10-17] MEDS: MIRTAZAPINE 30 MG TABLET PO SCH (20:38)
[2017-10-17] MEDS: OLANZapine 10 MG TABLET PO SCH (20:39)
[2017-10-18 06:58] LABS: BASOPHILS % (AUTO) 0.2 % (0.0-2.0); EOSINOPHILS % (AUTO) 1.7 % (1.0-6.0); HEMATOCRIT 54.6 % (41-53); LYMPHOCYTES # (AUTO) 1.7 K/uL (1.0-4.8); LYMPHOCYTES % (AUTO) 31.5 % (22.0-44.0); MEAN CORPUSCULAR HEMOGLOBIN 31.3 pg (26.0-34.0); MEAN CORPUSCULAR HGB CONC 35.2 G/dL (31.0-37.0); MEAN CORPUSCULAR VOLUME 89 fL (80-100); MONOCYTES # (AUTO) 0.6 K/uL (0.1-1.0); MONOCYTES % (AUTO) 10.8 % (2.0-9.0); NEUTROPHILS % (AUTO) 55.8 % (40.0-70.0); PLATELET COUNT (AUTO) 198 K/uL (150-450); RED BLOOD CELL COUNT(AUTO) 6.15 MIL/uL (4.50-5.90); RED CELL DISTRIBUTION WIDTH 14.9 % (11.5-14.5)
[2017-10-18 07:01] LABS: HEMOGLOBIN 19.2 g/dL (13.5-17.5)
[2017-10-18] MEDS: CHOLECALCIFEROL (VIT D3) 1,000 UNITS TABLET PO SCH (09:42)
[2017-10-18] MEDS: LISINOPRIL 20 MG TABLET PO SCH (09:42)
[2017-10-18] MEDS: ASPIRIN 81 MG EC TABLET PO SCH (09:43)
[2017-10-18] MEDS: TRIHEXYPHENIDYL HCL 5 MG TABLET PO SCH ×2 (09:43→16:28)
[2017-10-18] MEDS: LACTULOSE 20 GM/30 ML SOLUTION UDCUP PO SCH ×3 (09:44→16:30)
[2017-10-18 11:24] VITALS: BP 110/73
[2017-10-18 13:11] VITALS: BP 122/75
[2017-10-18 16:53] VITALS: BP 115/68
[2017-10-18] MEDS: MIRTAZAPINE 30 MG TABLET PO SCH (20:00)
[2017-10-18] MEDS: OLANZapine 10 MG TABLET PO SCH (20:00)
[2017-10-19] MEDS: LACTULOSE 20 GM/30 ML SOLUTION UDCUP PO SCH ×2 (08:48→16:00)
[2017-10-19] MEDS: TRIHEXYPHENIDYL HCL 5 MG TABLET PO SCH ×2 (08:48→16:54)
[2017-10-19] MEDS: LISINOPRIL 20 MG TABLET PO SCH (08:48)
[2017-10-19] MEDS: CHOLECALCIFEROL (VIT D3) 1,000 UNITS TABLET PO SCH (08:48)
[2017-10-19] MEDS: ASPIRIN 81 MG EC TABLET PO SCH (08:49)
[2017-10-19 09:29] VITALS: BP 141/75
[2017-10-19 16:30] VITALS: BP 110/76
[2017-10-19] MEDS: LORazepam 2 MG TABLET PO PRN (16:56)
[2017-10-19 17:00] VITALS: BP 123/75
[2017-10-19] MEDS ORDERED: LORazepam 2 MG/ML VIAL IM ONE (17:30)
[2017-10-19] MEDS: OLANZapine 10 MG TABLET PO SCH (20:24)
[2017-10-19] MEDS: MIRTAZAPINE 30 MG TABLET PO SCH (20:24)
[2017-10-20 08:37] VITALS: BP 107/73
[2017-10-20] MEDS: LISINOPRIL 20 MG TABLET PO SCH (09:38)
[2017-10-20] MEDS: ASPIRIN 81 MG EC TABLET PO SCH (09:38)
[2017-10-20] MEDS: CHOLECALCIFEROL (VIT D3) 1,000 UNITS TABLET PO SCH (09:38)
[2017-10-20] MEDS: TRIHEXYPHENIDYL HCL 5 MG TABLET PO SCH ×3 (09:38→17:23)
[2017-10-20 19:08] VITALS: BP 138/94
[2017-10-20] MEDS: OLANZapine 10 MG TABLET PO SCH (20:53)
[2017-10-20] MEDS: MIRTAZAPINE 30 MG TABLET PO SCH (20:53)
[2017-10-21 08:00] VITALS: BP 131/78
[2017-10-21] MEDS: TRIHEXYPHENIDYL HCL 5 MG TABLET PO SCH ×3 (08:53→16:31)
[2017-10-21] MEDS: CHOLECALCIFEROL (VIT D3) 1,000 UNITS TABLET PO SCH (08:54)
[2017-10-21] MEDS: ASPIRIN 81 MG EC TABLET PO SCH (08:54)
[2017-10-21] MEDS: LISINOPRIL 20 MG TABLET PO SCH (08:54)
[2017-10-21] MEDS: LORazepam 2 MG TABLET PO PRN (10:00)
[2017-10-21 16:51] VITALS: BP 119/82
[2017-10-21] MEDS ORDERED: TRIH5TAB2 PO (19:01)
[2017-10-21] MEDS ORDERED: MIRT30 PO (19:01)
[2017-10-21] MEDS ORDERED: OLAN10TA20 PO (19:01)
[2017-10-21] MEDS ORDERED: PALI156D IM (19:01)
[2017-10-21] MEDS: MIRTAZAPINE 30 MG TABLET PO SCH (20:29)
[2017-10-21] MEDS: OLANZapine 10 MG TABLET PO SCH (20:29)
[2017-10-22 08:30] VITALS: BP 110/76
[2017-10-22] MEDS: ASPIRIN 81 MG EC TABLET PO SCH (08:51)
[2017-10-22] MEDS: CHOLECALCIFEROL (VIT D3) 1,000 UNITS TABLET PO SCH (08:51)
[2017-10-22] MEDS: TRIHEXYPHENIDYL HCL 5 MG TABLET PO SCH (08:51)
[2017-10-22] MEDS: LISINOPRIL 20 MG TABLET PO SCH (09:57)
== END 2017-10-22 12:54 | disposition home or self-care (01) | DRG 885 ==
LOC: EMS 19:31 → B2X 10-04 04:24 → 3EX 10-16 18:21
PROVIDERS: ADMIT Psychiatry & Neurology Psychiatry; ATTEND Psychiatry & Neurology Psychiatry
DX: F20.0 Paranoid schizophrenia (principal); D75.1 Secondary polycythemia; E11.9 Type 2 diabetes mellitus without complications; E55.9 Vitamin D deficiency, unspecified; E86.0 Dehydration; F94.0 Selective mutism; F41.9 Anxiety disorder, unspecified; G47.00 Insomnia, unspecified; I10 Essential (primary) hypertension; K59.00 Constipation, unspecified; F17.200 Nicotine dependence, unspecified, uncomplicated; Z28.21 Immunization not carried out because of patient refusal; Z72.89 Other problems related to lifestyle; Z79.899 Other long term (current) drug therapy; Z71.6 Tobacco abuse counseling; Z71.41 Alcohol abuse counseling and surveillance of alcoholic
CPT/HCPCS: 82668; 83735; 84100; 85007; 85014; 85018; 96360; 96361; 99285; G0480; J1200; J2060; J3230; J7030

== ENCOUNTER 2017-10-15 21:14 | Emergency (ER) | payer MEDICARE ==
[~2017-10-15] VITALS: Ht 177.8 cm; Wt 81.8 kg
[~2017-10-15 21:14] MED LIST changes: +PALI156D IM
[2017-10-15] MEDS ORDERED: LISINOPRIL 10 MG TABLET PO ONE (21:45)
[2017-10-16 01:24] VITALS: BP 141/88
[2017-10-16] MEDS ORDERED: ASPI81 PO (04:51)
[2017-10-16] MEDS ORDERED: TRIH2TAB3 PO (04:51)
[2017-10-16] MEDS ORDERED: LISI-662 PO (04:51)
[2017-10-16] MEDS ORDERED: VITAD1000 PO (04:51)
[2017-10-16] MEDS ORDERED: MIRT30 PO (19:01)
[2017-10-16] MEDS ORDERED: OLAN10TA6 PO (19:01)
== END 2017-10-16 04:58 | disposition home or self-care (01) ==
LOC: EMS 21:16
DX: I10 Essential (primary) hypertension (principal); D75.1 Secondary polycythemia; F20.0 Paranoid schizophrenia; E11.9 Type 2 diabetes mellitus without complications; F31.9 Bipolar disorder, unspecified; Z79.899 Other long term (current) drug therapy
CPT/HCPCS: 99283

== ENCOUNTER 2017-10-24 18:05 | Emergency (ER) | payer MEDICARE ==
[~2017-10-24] VITALS: Ht 172.7 cm; Wt 81.8 kg
[~2017-10-24 18:05] MED LIST changes: +ASPI81 PO; -CLON.5 PO; +LISI-662 PO; -MIRT15 PO; +MIRT30 PO; -OLAN5TAB40 PO; +TRIH2TAB3 PO; +TRIH5TAB2 PO; +VITAD1000 PO
[2017-10-24 18:38] LABS: GLUCOSE,POINT OF CARE 107 MG/DL (70-110)
[2017-10-24 18:57] LABS: GLUCOSE,POINT OF CARE 100 MG/DL (70-110)
[2017-10-24 19:09] LABS: BASOPHILS % (AUTO) 0.2 % (0.0-2.0); EOSINOPHILS % (AUTO) 0.4 % (1.0-6.0); HEMATOCRIT 48.1 % (41-53); HEMOGLOBIN 17.1 g/dL (13.5-17.5); LYMPHOCYTES % (AUTO) 22.2 % (22.0-44.0); MEAN CORPUSCULAR HEMOGLOBIN 31.6 pg (26.0-34.0); MEAN CORPUSCULAR HGB CONC 35.6 G/dL (31.0-37.0); MEAN CORPUSCULAR VOLUME 89 fL (80-100); MONOCYTES # (AUTO) 0.8 K/uL (0.1-1.0); MONOCYTES % (AUTO) 8.2 % (2.0-9.0); NEUTROPHILS # (AUTO) 6.3 K/uL (1.8-7.7); PLATELET COUNT (AUTO) 205 K/uL (150-450); RED BLOOD CELL COUNT(AUTO) 5.43 MIL/uL (4.50-5.90); RED CELL DISTRIBUTION WIDTH 14.5 % (11.5-14.5)
[2017-10-24 19:18] LABS: ANION GAP 9 mmol/L (8-16); CALCIUM, TOTAL 8.7 mg/dL (8.8-10.5); CARBON DIOXIDE 27 mmol/L (22-29); CHLORIDE 102 mmol/L (98-107); CREATININE 0.96 mg/dL (0.60-1.30); GLOMERULAR FILTR. RATE CALC > 60 mL/min (>60); GLUCOSE,RANDOM 110 mg/dL (70-110); POTASSIUM 3.7 mmol/L (3.5-5.1); SODIUM SERUM 138 mmol/L (136-145); UREA NITROGEN, BLOOD 15 mg/dL (7-18)
[2017-10-24 19:35] LABS: ALANINE AMINOTRANSFERASE 59 U/L (12-78); ALBUMIN 3.9 g/dL (3.4-5.0); ALKALINE PHOSPHATASE 73 U/L (46-116); ASPARTATE AMINOTRANSFERASE 38 U/L (15-37); BILIRUBIN,TOTAL 0.3 mg/dL (0.1-1.0); LIPASE 114 U/L (73-393); TOTAL PROTEIN, SERUM 7.4 g/dL (6.4-8.2)
[2017-10-24] MEDS ORDERED: LORazepam 2 MG/ML VIAL IVP ONE (20:30)
[2017-10-24 21:00] VITALS: BP 135/89
[2017-10-24] MEDS ORDERED: LORazepam 2 MG/ML VIAL IM ONE (21:00)
== END 2017-10-24 21:44 | disposition home or self-care (01) ==
LOC: EMS 18:05
DX: F41.9 Anxiety disorder, unspecified (principal); F20.9 Schizophrenia, unspecified; E11.9 Type 2 diabetes mellitus without complications; I10 Essential (primary) hypertension; Z79.82 Long term (current) use of aspirin
CPT/HCPCS: 70450; 80053; 82140; 82948; 82962; 83605; 83690; 85025; 93005; 96372; 99291; G0480; J2060

== ENCOUNTER 2018-04-18 12:04 | Emergency (ER) | payer MEDICARE ==
[~2018-04-18] VITALS: Ht 167.6 cm; Wt 75.0 kg
[~2018-04-18 12:04] MED LIST changes: -TRIH2TAB3 PO
[2018-04-18 12:38] LABS: GLUCOSE,POINT OF CARE 69 MG/DL (70-110)
[2018-04-18] MEDS ORDERED: LORazepam 1 MG TABLET PO ONE (13:00)
[2018-04-18 13:54] LABS: BASOPHILS % (AUTO) 0.1 % (0.0-2.0); EOSINOPHILS % (AUTO) 0.3 % (1.0-6.0); LYMPHOCYTES % (AUTO) 25.3 % (22.0-44.0); MEAN CORPUSCULAR HEMOGLOBIN 32.4 pg (26.0-34.0); MEAN CORPUSCULAR HGB CONC 34.9 G/dL (31.0-37.0); MEAN CORPUSCULAR VOLUME 93 fL (80-100); MONOCYTES # (AUTO) 0.6 K/uL (0.1-1.0); MONOCYTES % (AUTO) 7.3 % (2.0-9.0); NEUTROPHILS # (AUTO) 5.3 K/uL (1.8-7.7); PLATELET COUNT (AUTO) 179 K/uL (150-450); RED BLOOD CELL COUNT(AUTO) 6.01 MIL/uL (4.50-5.90); RED CELL DISTRIBUTION WIDTH 12.6 % (11.5-14.5)
[2018-04-18 14:04] LABS: HEMATOCRIT 55.7 % (41-53); HEMOGLOBIN 19.5 g/dL (13.5-17.5)
[2018-04-18 14:20] LABS: ANION GAP 12 mmol/L (8-16); CALCIUM, TOTAL 9.5 mg/dL (8.8-10.5); CARBON DIOXIDE 27 mmol/L (22-29); CHLORIDE 106 mmol/L (98-107); CREATININE 0.85 mg/dL (0.60-1.30); GLOMERULAR FILTR. RATE CALC > 60 mL/min (>60); GLUCOSE,RANDOM 91 mg/dL (70-110); POTASSIUM 4.3 mmol/L (3.5-5.1); SODIUM SERUM 145 mmol/L (136-145); UREA NITROGEN, BLOOD 13 mg/dL (7-18)
[2018-04-18 14:45] LABS: ALANINE AMINOTRANSFERASE 21 U/L (12-78); ALBUMIN 4.1 g/dL (3.4-5.0); ALKALINE PHOSPHATASE 80 U/L (46-116); ASPARTATE AMINOTRANSFERASE 19 U/L (15-37); BILIRUBIN,TOTAL 0.7 mg/dL (0.1-1.0); CREATINE KINASE, TOTAL ONLY 120 U/L (39-308); TOTAL PROTEIN, SERUM 7.3 g/dL (6.4-8.2)
[2018-04-18] MEDS ORDERED: SODIUM CHLORIDE 0.9% 1,000 ML IV ONE ×2 (14:45)
[2018-04-18 16:40] VITALS: BP 155/90
== END 2018-04-18 17:28 | disposition home or self-care (01) ==
LOC: EMS 12:05
DX: G40.909 Epilepsy, unspecified, not intractable, without status epilepticus (principal); E86.0 Dehydration; F41.9 Anxiety disorder, unspecified; E11.9 Type 2 diabetes mellitus without complications; I10 Essential (primary) hypertension; F20.9 Schizophrenia, unspecified; Z79.82 Long term (current) use of aspirin; Z79.899 Other long term (current) drug therapy
CPT/HCPCS: 36415; 80053; 82550; 82962; 85025; 96360; 96361; 99285; G0480; J7030

== ENCOUNTER 2019-10-29 19:51 | Inpatient (IN) | payer MEDICARE, MEDICAID ==
[~2019-10-29] VITALS: Ht 170.2 cm; Wt 81.3 kg
[~2019-10-29 19:51] MED LIST changes: -ASPI81 PO; +ATEN-187 PO; +CIPR250S4 PO; +CLOZ100T35 PO; +DIPH25TA20 PO; -LISI-662 PO; +METF-960 PO; -MIRT30 PO; -PALI156D IM; +PALI234D IM; +QUET100T PO; -TRIH5TAB2 PO; -VITAD1000 PO
[2019-10-29 20:56] LABS: BASOPHILS % (AUTO) 0.3 % (0.0-2.0); EOSINOPHILS % (AUTO) 0.1 % (1.0-6.0); HEMATOCRIT 52.1 % (41-53); HEMOGLOBIN 17.8 g/dL (13.5-17.5); LYMPHOCYTES # (AUTO) 0.6 K/uL (1.0-4.8); MEAN CORPUSCULAR HEMOGLOBIN 31.5 pg (26.0-34.0); MEAN CORPUSCULAR HGB CONC 34.1 G/dL (31.0-37.0); MEAN CORPUSCULAR VOLUME 93 fL (80-100); MONOCYTES # (AUTO) 0.4 K/uL (0.1-1.0); MONOCYTES % (AUTO) 3.6 % (2.0-9.0); PLATELET COUNT (AUTO) 304 K/uL (150-450); RED BLOOD CELL COUNT(AUTO) 5.64 MIL/uL (4.50-5.90); RED CELL DISTRIBUTION WIDTH 15.7 % (11.5-14.5)
[2019-10-29 21:00] LABS: GLUCOSE,POINT OF CARE 110 MG/DL (70-110)
[2019-10-29 21:04] LABS: ANION GAP 11 mmol/L (8-16); CALCIUM, TOTAL 9.6 mg/dL (8.8-10.5); CARBON DIOXIDE 23 mmol/L (22-29); CHLORIDE 102 mmol/L (98-107); CREATININE 0.98 mg/dL (0.60-1.30); GLOMERULAR FILTR. RATE CALC > 60 mL/min (>60); GLUCOSE,RANDOM 101 mg/dL (70-110); POTASSIUM 4.4 mmol/L (3.5-5.1); SODIUM SERUM 136 mmol/L (136-145); UREA NITROGEN, BLOOD 14 mg/dL (7-18)
[2019-10-29 21:10] LABS: ALANINE AMINOTRANSFERASE 17 U/L (12-78); ALBUMIN 4.9 g/dL (3.4-5.0); ALKALINE PHOSPHATASE 81 U/L (46-116); ASPARTATE AMINOTRANSFERASE 13 U/L (15-37); BILIRUBIN,TOTAL 0.5 mg/dL (0.1-1.0); TOTAL PROTEIN, SERUM 8.4 g/dL (6.4-8.2)
[2019-10-29] MEDS ORDERED: SODIUM CHLORIDE 0.9% 1,000 ML IV ONE (22:45)
[2019-10-29 23:27] LABS: LACTIC ACID 1.4 mmol/L (0.4-2.0)
[2019-10-29] MEDS ORDERED: LORazepam 2 MG/ML VIAL IM ONE (23:30)
[2019-10-29 23:33] LABS: FREE T4 (FREE THYROXINE) 1.05 ng/dL (0.76-1.46); THYROID STIMULATING HORMONE 0.5 uIU/mL (0.36-3.74)
[2019-10-29] MEDS ORDERED: LORazepam 2 MG/ML VIAL IVP ONE (23:45)
[2019-10-30 01:35] LABS: AMPHET/METH SCREEN,URINE NEGATIVE (NEGATIVE); BARBITURATE SCREEN, URINE NEGATIVE (NEGATIVE); BENZODIAZEPINES SCREEN,URINE NEGATIVE (NEGATIVE); CANNABINOID SCREEN,URINE NEGATIVE (NEGATIVE); COCAINE SCREEN,URINE NEGATIVE (NEGATIVE); METHADONE SCREEN, URINE NEGATIVE (NEGATIVE); OPIATE SCREEN,URINE NEGATIVE (NEGATIVE); PHENCYCLIDINE SCREEN,URINE NEGATIVE (NEGATIVE)
[2019-10-30 02:09] LABS: CREATINE KINASE, TOTAL ONLY 118 U/L (39-308)
[2019-10-30] MEDS ORDERED: ZOLPIDEM TARTRATE 10 MG TABLET PO PRN (03:30)
[2019-10-30 08:39] VITALS: BP 146/99
[2019-10-30 08:48] LABS: GLUCOMETER DEV NAME(LOC) BV2S.; GLUCOSE,POINT OF CARE 90 MG/DL (70-110)
[2019-10-30] MEDS ORDERED: ACETAMINOPHEN 325 MG TABLET PO PRN (09:45)
[2019-10-30] MEDS ORDERED: ONDANSETRON HCL 4 MG TABLET PO PRN (09:45)
[2019-10-30] MEDS ORDERED: BENZOCAINE/MENTHOL LOZENGE MM PRN (09:45)
[2019-10-30] MEDS ORDERED: MAGNESIUM HYDROXIDE SUSPENSION 30 ML UDCUP PO PRN (09:45)
[2019-10-30] MEDS ORDERED: INSULIN LISPRO 100 UNITS/ML SQ PRN (09:45)
[2019-10-30] MEDS ORDERED: GLUCAGON,HUMAN RECOMBINANT 1 MG VIAL IM PRN (09:45)
[2019-10-30] MEDS ORDERED: ALBUTEROL SULFATE HFA 90 MCG/PUFF 8 GM INHALER IH PRN (09:45)
[2019-10-30] MEDS ORDERED: CloNIDine HCL 0.1 MG TABLET PO PRN (09:45)
[2019-10-30] MEDS ORDERED: PETROLATUM,WHITE 28 GM JELLY TP PRN (09:45)
[2019-10-30] MEDS ORDERED: MAG HYDROX/AL HYDROX/SIMETH ES 30 ML SUSPENSION UDCUP PO PRN (09:45)
[2019-10-30] MEDS ORDERED: DOCUSATE SODIUM 100 MG CAPSULE PO PRN (09:45)
[2019-10-30] MEDS ORDERED: IBUPROFEN 600 MG TABLET PO PRN (09:45)
[2019-10-30] MEDS ORDERED: LOPERAMIDE HCL 2 MG CAPSULE PO PRN (09:45)
[2019-10-30] MEDS ORDERED: OMEPRAZOLE 20 MG CAPSULE PO PRN (09:45)
[2019-10-30] MEDS ORDERED: BACITRACIN 28.4 GM OINTMENT TP PRN (09:45)
[2019-10-30] MEDS: LISINOPRIL 5 MG TABLET PO SCH (10:27)
[2019-10-30] MEDS: LORazepam 2 MG TABLET PO PRN ×2 (10:30→16:11)
[2019-10-30] MEDS ORDERED: PNEUMOCOCCAL VACCINE POLYVALENT 0.5 ML VIAL [PPSV23] IM ONE (11:00)
[2019-10-30 12:39] LABS: GLUCOMETER DEV NAME(LOC) BV2S.; GLUCOSE,POINT OF CARE 150 MG/DL (70-110)
[2019-10-30] MEDS: MetFORMIN HCL 500 MG TABLET PO SCH (16:12)
[2019-10-30] MEDS: CloZAPine 100 MG RAPDIS TABLET PO SCH ×2 (16:12→21:18)
[2019-10-30 16:27] VITALS: BP 134/89
[2019-10-30 16:28] LABS: GLUCOMETER DEV NAME(LOC) BV2S.; GLUCOSE,POINT OF CARE 134 MG/DL (70-110)
[2019-10-30 21:48] LABS: GLUCOMETER DEV NAME(LOC) BV2S.; GLUCOSE,POINT OF CARE 95 MG/DL (70-110)
[2019-10-31 06:09] LABS: GLUCOMETER DEV NAME(LOC) BV2S.; GLUCOSE,POINT OF CARE 93 MG/DL (70-110)
[2019-10-31 06:30] VITALS: BP 129/88
[2019-10-31] MEDS: MetFORMIN HCL 500 MG TABLET PO SCH ×2 (06:37→17:11)
[2019-10-31 08:55] VITALS: BP 107/60
[2019-10-31] MEDS: LISINOPRIL 5 MG TABLET PO SCH (09:27)
[2019-10-31] MEDS: CloZAPine 100 MG RAPDIS TABLET PO SCH ×2 (09:28→21:26)
[2019-10-31] MEDS: LORazepam 2 MG TABLET PO PRN ×2 (09:58→17:11)
[2019-10-31 11:28] LABS: GLUCOMETER DEV NAME(LOC) BV2S.; GLUCOSE,POINT OF CARE 99 MG/DL (70-110)
[2019-10-31] MEDS: QUEtiapine FUMARATE 100 MG TABLET PO SCH ×2 (11:56→17:11)
[2019-10-31 16:21] VITALS: BP 126/78
[2019-10-31 16:22] LABS: GLUCOMETER DEV NAME(LOC) BV2S.; GLUCOSE,POINT OF CARE 373 MG/DL (70-110)
[2019-10-31 17:43] LABS: GLUCOMETER DEV NAME(LOC) BV2S.; GLUCOSE,POINT OF CARE 128 MG/DL (70-110)
[2019-10-31 20:31] LABS: GLUCOMETER DEV NAME(LOC) BV2S.; GLUCOSE,POINT OF CARE 100 MG/DL (70-110)
[2019-10-31] MEDS ORDERED: CloZAPine 100 MG TABLET PO SCH (21:00)
[2019-10-31] MEDS: DiphenhydrAMINE HCL 25 MG CAPSULE PO SCH (21:26)
[2019-11-01 03:47] VITALS: BP 122/80
[2019-11-01] MEDS: MetFORMIN HCL 500 MG TABLET PO SCH ×2 (06:48→15:53)
[2019-11-01 08:23] LABS: CHOL/HDL RATIO 3.9 (4.2-7.3)
[2019-11-01 08:27] VITALS: BP 135/86
[2019-11-01] MEDS: QUEtiapine FUMARATE 100 MG TABLET PO SCH ×2 (08:32→15:53)
[2019-11-01] MEDS: CloZAPine 100 MG RAPDIS TABLET PO SCH ×2 (08:32→20:11)
[2019-11-01] MEDS: LISINOPRIL 5 MG TABLET PO SCH (08:32)
[2019-11-01] MEDS: LORazepam 2 MG TABLET PO PRN ×2 (08:35→15:53)
[2019-11-01 11:33] LABS: GLUCOMETER DEV NAME(LOC) BV2S.; GLUCOSE,POINT OF CARE 100 MG/DL (70-110)
[2019-11-01 11:38] LABS: GLUCOMETER DEV NAME(LOC) BV2S.; GLUCOSE,POINT OF CARE 83 MG/DL (70-110)
[2019-11-01] MEDS: HALOPERIDOL 5 MG TABLET PO PRN ×2 (11:54→16:46)
[2019-11-01 16:17] LABS: GLUCOMETER DEV NAME(LOC) BV2S.; GLUCOSE,POINT OF CARE 95 MG/DL (70-110)
[2019-11-01 16:44] VITALS: BP 144/102
[2019-11-01] MEDS: DiphenhydrAMINE HCL 25 MG CAPSULE PO SCH (20:10)
[2019-11-01 20:12] VITALS: BP 136/99
[2019-11-01 20:46] LABS: GLUCOMETER DEV NAME(LOC) BV2S.; GLUCOSE,POINT OF CARE 122 MG/DL (70-110)
[2019-11-02 00:50] VITALS: BP 117/78
[2019-11-02] MEDS: MetFORMIN HCL 500 MG TABLET PO SCH ×2 (06:29→16:28)
[2019-11-02 06:34] LABS: GLUCOMETER DEV NAME(LOC) BV2S.; GLUCOSE,POINT OF CARE 102 MG/DL (70-110)
[2019-11-02] MEDS: CloZAPine 100 MG RAPDIS TABLET PO SCH ×2 (08:52→20:10)
[2019-11-02] MEDS: LISINOPRIL 5 MG TABLET PO SCH (08:52)
[2019-11-02] MEDS: QUEtiapine FUMARATE 100 MG TABLET PO SCH ×2 (08:52→16:28)
[2019-11-02 09:41] VITALS: BP 114/71
[2019-11-02] MEDS: LORazepam 2 MG TABLET PO PRN ×2 (10:43→16:28)
[2019-11-02 11:52] LABS: GLUCOMETER DEV NAME(LOC) BV2S.; GLUCOSE,POINT OF CARE 90 MG/DL (70-110)
[2019-11-02 16:00] VITALS: BP 140/107
[2019-11-02 16:40] LABS: GLUCOMETER DEV NAME(LOC) BV2S.; GLUCOSE,POINT OF CARE 122 MG/DL (70-110)
[2019-11-02] MEDS: DiphenhydrAMINE HCL 25 MG CAPSULE PO SCH (20:10)
[2019-11-02 21:09] LABS: GLUCOMETER DEV NAME(LOC) BV2S.; GLUCOSE,POINT OF CARE 85 MG/DL (70-110)
[2019-11-03 06:14] LABS: GLUCOMETER DEV NAME(LOC) BV2S.; GLUCOSE,POINT OF CARE 102 MG/DL (70-110)
[2019-11-03 06:29] VITALS: BP 105/73
[2019-11-03] MEDS: MetFORMIN HCL 500 MG TABLET PO SCH ×2 (06:54→16:11)
[2019-11-03 08:18] VITALS: BP 110/78
[2019-11-03] MEDS: LISINOPRIL 5 MG TABLET PO SCH (09:13)
[2019-11-03] MEDS: CloZAPine 100 MG RAPDIS TABLET PO SCH ×2 (09:13→19:54)
[2019-11-03] MEDS: QUEtiapine FUMARATE 100 MG TABLET PO SCH ×2 (09:13→16:11)
[2019-11-03] MEDS: LORazepam 2 MG TABLET PO PRN ×2 (10:12→15:26)
[2019-11-03 11:04] LABS: GLUCOMETER DEV NAME(LOC) BV2S.; GLUCOSE,POINT OF CARE 109 MG/DL (70-110)
[2019-11-03 16:22] VITALS: BP 139/86
[2019-11-03 16:44] LABS: GLUCOMETER DEV NAME(LOC) BV2S.; GLUCOSE,POINT OF CARE 96 MG/DL (70-110)
[2019-11-03] MEDS: DiphenhydrAMINE HCL 25 MG CAPSULE PO SCH (19:55)
[2019-11-03 20:16] LABS: GLUCOMETER DEV NAME(LOC) BV2S.; GLUCOSE,POINT OF CARE 116 MG/DL (70-110)
[2019-11-04 00:50] VITALS: BP 112/71
[2019-11-04 06:19] LABS: GLUCOMETER DEV NAME(LOC) BV2S.; GLUCOSE,POINT OF CARE 105 MG/DL (70-110)
[2019-11-04] MEDS: MetFORMIN HCL 500 MG TABLET PO SCH ×2 (06:58→16:50)
[2019-11-04 08:09] VITALS: BP 113/66
[2019-11-04] MEDS: LISINOPRIL 5 MG TABLET PO SCH (08:13)
[2019-11-04] MEDS: QUEtiapine FUMARATE 100 MG TABLET PO SCH ×2 (08:13→16:49)
[2019-11-04] MEDS: CloZAPine 100 MG RAPDIS TABLET PO SCH ×2 (08:14→20:17)
[2019-11-04] MEDS: LORazepam 2 MG TABLET PO PRN ×2 (10:09→16:11)
[2019-11-04 11:09] LABS: GLUCOMETER DEV NAME(LOC) BV2S.; GLUCOSE,POINT OF CARE 140 MG/DL (70-110)
[2019-11-04 16:00] VITALS: BP 146/97
[2019-11-04 16:50] LABS: GLUCOMETER DEV NAME(LOC) BV2S.; GLUCOSE,POINT OF CARE 96 MG/DL (70-110)
[2019-11-04] MEDS: ATROPINE SULFATE 1% 15 ML OPHTHALMIC SOLUTION SL SCH (17:10)
[2019-11-04] MEDS: DiphenhydrAMINE HCL 25 MG CAPSULE PO SCH (20:18)
[2019-11-04 20:43] LABS: GLUCOMETER DEV NAME(LOC) BV2S.; GLUCOSE,POINT OF CARE 127 MG/DL (70-110)
[2019-11-05 00:03] VITALS: BP 132/75
[2019-11-05] MEDS: MetFORMIN HCL 500 MG TABLET PO SCH (06:41)
[2019-11-05 07:00] LABS: GLUCOMETER DEV NAME(LOC) BV2S.; GLUCOSE,POINT OF CARE 89 MG/DL (70-110)
[2019-11-05 08:15] VITALS: BP 120/77
[2019-11-05] MEDS: LISINOPRIL 5 MG TABLET PO SCH (08:17)
[2019-11-05] MEDS: CloZAPine 100 MG RAPDIS TABLET PO SCH (08:17)
[2019-11-05] MEDS: QUEtiapine FUMARATE 100 MG TABLET PO SCH (08:17)
[2019-11-05] MEDS: ATROPINE SULFATE 1% 15 ML OPHTHALMIC SOLUTION SL SCH (08:18)
[2019-11-05] MEDS: LORazepam 2 MG TABLET PO PRN (10:07)
[2019-11-05] MEDS ORDERED: LISI-660 PO (12:16)
[2019-11-05] MEDS ORDERED: CLOZ100T37 PO (12:16)
[2019-11-05 13:21] LABS: GLUCOMETER DEV NAME(LOC) BV2S.; GLUCOSE,POINT OF CARE 126 MG/DL (70-110)
== END 2019-11-05 16:40 | disposition home or self-care (01) | DRG 885 ==
LOC: EMS 19:53 → B2S 10-30 03:30
PROVIDERS: ATTEND Psychiatry & Neurology Child & Adolescent Psychiatry
DX: F20.2 Catatonic schizophrenia (principal); F20.0 Paranoid schizophrenia; E11.9 Type 2 diabetes mellitus without complications; I10 Essential (primary) hypertension; F41.9 Anxiety disorder, unspecified; F17.200 Nicotine dependence, unspecified, uncomplicated; F10.10 Alcohol abuse, uncomplicated; Y90.9 Presence of alcohol in blood, level not specified; G47.00 Insomnia, unspecified; K59.00 Constipation, unspecified; Z71.6 Tobacco abuse counseling
CPT/HCPCS: 51702; 83605; 84439; 84443; G0480; J2060; J7030

== ENCOUNTER 2019-11-14 01:15 | Inpatient (IN) | payer MEDICARE, MEDICAID ==
[~2019-11-14] VITALS: Ht 172.7 cm; Wt 77.6 kg
[~2019-11-14 01:15] MED LIST changes: -ATEN-187 PO; -CIPR250S4 PO; -CLOZ100T35 PO; +CLOZ100T37 PO; +LISI-660 PO; -PALI234D IM
[2019-11-14] MEDS ORDERED: HALOPERIDOL 5 MG TABLET PO PRN (02:15)
[2019-11-14] MEDS ORDERED: ZOLPIDEM TARTRATE 10 MG TABLET PO PRN (02:15)
[2019-11-14 02:48] VITALS: BP 126/82
[2019-11-14] MEDS ORDERED: PNEUMOCOCCAL VACCINE POLYVALENT 0.5 ML VIAL [PPSV23] IM ONE (03:15)
[2019-11-14 03:23] VITALS: BP 126/82
[2019-11-14] MEDS ORDERED: ONDANSETRON HCL 4 MG TABLET PO PRN (08:45)
[2019-11-14] MEDS ORDERED: LOPERAMIDE HCL 2 MG CAPSULE PO PRN (08:45)
[2019-11-14] MEDS ORDERED: BACITRACIN 28.4 GM OINTMENT TP PRN (08:45)
[2019-11-14] MEDS ORDERED: MAG HYDROX/AL HYDROX/SIMETH ES 30 ML SUSPENSION UDCUP PO PRN (08:45)
[2019-11-14] MEDS ORDERED: OMEPRAZOLE 20 MG CAPSULE PO PRN (08:45)
[2019-11-14] MEDS ORDERED: ACETAMINOPHEN 325 MG TABLET PO PRN (08:45)
[2019-11-14] MEDS ORDERED: CloNIDine HCL 0.1 MG TABLET PO PRN (08:45)
[2019-11-14] MEDS ORDERED: PETROLATUM,WHITE 28 GM JELLY TP PRN (08:45)
[2019-11-14] MEDS ORDERED: ALBUTEROL SULFATE HFA 90 MCG/PUFF 8 GM INHALER IH PRN (08:45)
[2019-11-14] MEDS ORDERED: BENZOCAINE/MENTHOL LOZENGE MM PRN (08:45)
[2019-11-14] MEDS ORDERED: IBUPROFEN 600 MG TABLET PO PRN (08:45)
[2019-11-14] MEDS: LISINOPRIL 5 MG TABLET PO SCH (09:15)
[2019-11-14 10:54] VITALS: BP 125/81
[2019-11-14 11:30] LABS: BASOPHILS % (AUTO) 0.2 % (0.0-2.0); EOSINOPHILS % (AUTO) 0.8 % (1.0-6.0); HEMATOCRIT 52.7 % (41-53); HEMOGLOBIN 17.8 g/dL (13.5-17.5); LYMPHOCYTES # (AUTO) 1.2 K/uL (1.0-4.8); LYMPHOCYTES % (AUTO) 18.3 % (22.0-44.0); MEAN CORPUSCULAR HEMOGLOBIN 30.7 pg (26.0-34.0); MEAN CORPUSCULAR HGB CONC 33.8 G/dL (31.0-37.0); MEAN CORPUSCULAR VOLUME 91 fL (80-100); MONOCYTES # (AUTO) 0.5 K/uL (0.1-1.0); MONOCYTES % (AUTO) 7.9 % (2.0-9.0); NEUTROPHILS # (AUTO) 4.8 K/uL (1.8-7.7); NEUTROPHILS % (AUTO) 72.8 % (40.0-70.0); PLATELET COUNT (AUTO) 232 K/uL (150-450); RED BLOOD CELL COUNT(AUTO) 5.81 MIL/uL (4.50-5.90); RED CELL DISTRIBUTION WIDTH 14.7 % (11.5-14.5)
[2019-11-14 11:53] LABS: ALANINE AMINOTRANSFERASE 23 U/L (12-78); ALKALINE PHOSPHATASE 81 U/L (46-116); ANION GAP 11 mmol/L (8-16); ASPARTATE AMINOTRANSFERASE 16 U/L (15-37); BILIRUBIN,TOTAL 0.3 mg/dL (0.1-1.0); CALCIUM, TOTAL 9.2 mg/dL (8.8-10.5); CARBON DIOXIDE 25 mmol/L (22-29); CHLORIDE 104 mmol/L (98-107); CREATININE 0.84 mg/dL (0.60-1.30); GLOMERULAR FILTR. RATE CALC > 60 mL/min (>60); GLUCOSE,RANDOM 111 mg/dL (70-110); POTASSIUM 4.1 mmol/L (3.5-5.1); SODIUM SERUM 140 mmol/L (136-145); TOTAL PROTEIN, SERUM 7.4 g/dL (6.4-8.2); UREA NITROGEN, BLOOD 14 mg/dL (7-18)
[2019-11-14 12:06] LABS: GLUCOMETER DEV NAME(LOC) 3EX.; GLUCOSE,POINT OF CARE 121 MG/DL (70-110)
[2019-11-14 16:02] VITALS: BP 127/80
[2019-11-14] MEDS: CloZAPine 100 MG RAPDIS TABLET PO SCH (20:47)
[2019-11-14] MEDS: DiphenhydrAMINE HCL 25 MG CAPSULE PO SCH (20:47)
[2019-11-15] MEDS: QUEtiapine FUMARATE 100 MG TABLET PO SCH ×2 (08:48→18:09)
[2019-11-15] MEDS: LISINOPRIL 5 MG TABLET PO SCH (08:49)
[2019-11-15] MEDS: CloZAPine 100 MG RAPDIS TABLET PO SCH ×2 (08:49→22:04)
[2019-11-15 09:38] LABS: CHOL/HDL RATIO 4.4 (4.2-7.3)
[2019-11-15 09:43] VITALS: BP 137/86
[2019-11-15 16:52] VITALS: BP 137/77
[2019-11-15] MEDS: DiphenhydrAMINE HCL 25 MG CAPSULE PO SCH (22:04)
[2019-11-16 08:18] VITALS: BP 108/56
[2019-11-16] MEDS: QUEtiapine FUMARATE 100 MG TABLET PO SCH ×2 (08:26→17:32)
[2019-11-16] MEDS: LISINOPRIL 5 MG TABLET PO SCH (08:27)
[2019-11-16] MEDS: CloZAPine 100 MG RAPDIS TABLET PO SCH ×2 (08:27→21:47)
[2019-11-16 16:03] VITALS: BP 111/69
[2019-11-16] MEDS: BENZTROPINE MESYLATE 1 MG TABLET PO SCH (17:32)
[2019-11-16] MEDS: PROPRANOLOL HCL 10 MG TABLET PO SCH (17:32)
[2019-11-16] MEDS ORDERED: CloZAPine 25 MG RAPDIS TABLET PO SCH (21:00)
[2019-11-16] MEDS: DiphenhydrAMINE HCL 25 MG CAPSULE PO SCH (22:00)
[2019-11-17] MEDS ORDERED: CloZAPine 100 MG RAPDIS TABLET PO SCH (09:00)
[2019-11-17 10:16] VITALS: BP 109/73
[2019-11-17] MEDS: QUEtiapine FUMARATE 100 MG TABLET PO SCH ×2 (11:16→17:08)
[2019-11-17] MEDS: CloZAPine 100 MG RAPDIS TABLET PO SCH ×2 (11:16→21:16)
[2019-11-17] MEDS: BENZTROPINE MESYLATE 1 MG TABLET PO SCH ×2 (11:16→17:08)
[2019-11-17] MEDS: DiphenhydrAMINE HCL 25 MG CAPSULE PO SCH (11:17)
[2019-11-17] MEDS: LISINOPRIL 5 MG TABLET PO SCH (11:17)
[2019-11-17] MEDS: PROPRANOLOL HCL 10 MG TABLET PO SCH ×2 (11:18→17:08)
[2019-11-17 16:05] VITALS: BP 106/76
[2019-11-17] MEDS ORDERED: CloZAPine 100 MG TABLET PO SCH (21:00)
[2019-11-18] MEDS ORDERED: CloZAPine 100 MG RAPDIS TABLET PO SCH (08:00)
[2019-11-18 08:36] VITALS: BP 129/87
[2019-11-18] MEDS: QUEtiapine FUMARATE 100 MG TABLET PO SCH ×2 (08:51→17:00)
[2019-11-18] MEDS: PROPRANOLOL HCL 10 MG TABLET PO SCH ×2 (08:51→20:20)
[2019-11-18] MEDS: BENZTROPINE MESYLATE 1 MG TABLET PO SCH ×2 (08:51→17:00)
[2019-11-18] MEDS: LISINOPRIL 5 MG TABLET PO SCH (08:52)
[2019-11-18] MEDS ORDERED: CloZAPine 100 MG TABLET PO SCH (09:00)
[2019-11-18 16:02] VITALS: BP 98/56
[2019-11-18 20:07] VITALS: BP 116/77
[2019-11-18] MEDS: DiphenhydrAMINE HCL 25 MG CAPSULE PO SCH (20:20)
[2019-11-18] MEDS: CloZAPine 100 MG RAPDIS TABLET PO SCH (20:20)
[2019-11-19] MEDS ORDERED: CloZAPine 100 MG RAPDIS TABLET PO SCH (08:00)
[2019-11-19] MEDS: BENZTROPINE MESYLATE 1 MG TABLET PO SCH ×2 (08:11→16:45)
[2019-11-19] MEDS: LISINOPRIL 5 MG TABLET PO SCH (08:11)
[2019-11-19] MEDS: PROPRANOLOL HCL 10 MG TABLET PO SCH ×2 (08:11→16:45)
[2019-11-19] MEDS: QUEtiapine FUMARATE 100 MG TABLET PO SCH ×2 (08:11→16:45)
[2019-11-19] MEDS: DOCUSATE SODIUM 100 MG CAPSULE PO PRN (08:11)
[2019-11-19 08:23] VITALS: BP 131/90
[2019-11-19] MEDS: MAGNESIUM HYDROXIDE SUSPENSION 30 ML UDCUP PO PRN (14:50)
[2019-11-19 16:00] VITALS: BP 127/72
[2019-11-19 16:15] VITALS: BP 128/81
[2019-11-19] MEDS: CloZAPine 100 MG RAPDIS TABLET PO SCH (20:21)
[2019-11-19] MEDS: DiphenhydrAMINE HCL 25 MG CAPSULE PO SCH (20:21)
[2019-11-20 08:24] VITALS: BP 121/76
[2019-11-20] MEDS: CloZAPine 100 MG RAPDIS TABLET PO SCH ×2 (09:47→20:22)
[2019-11-20] MEDS: LISINOPRIL 5 MG TABLET PO SCH (09:47)
[2019-11-20] MEDS: BENZTROPINE MESYLATE 1 MG TABLET PO SCH ×2 (09:47→16:31)
[2019-11-20] MEDS: PROPRANOLOL HCL 10 MG TABLET PO SCH ×2 (09:47→16:31)
[2019-11-20] MEDS: QUEtiapine FUMARATE 100 MG TABLET PO SCH ×2 (09:47→16:32)
[2019-11-20] MEDS: DOCUSATE SODIUM 100 MG CAPSULE PO PRN (09:53)
[2019-11-20 16:08] VITALS: BP 120/88
[2019-11-20] MEDS: DiphenhydrAMINE HCL 25 MG CAPSULE PO SCH (20:22)
[2019-11-21 08:04] VITALS: BP 136/90
[2019-11-21] MEDS: BENZTROPINE MESYLATE 1 MG TABLET PO SCH ×2 (10:50→16:57)
[2019-11-21] MEDS: LISINOPRIL 5 MG TABLET PO SCH (10:51)
[2019-11-21] MEDS: PROPRANOLOL HCL 10 MG TABLET PO SCH ×2 (10:52→16:57)
[2019-11-21] MEDS: CloZAPine 100 MG RAPDIS TABLET PO SCH ×2 (10:53→20:29)
[2019-11-21] MEDS: QUEtiapine FUMARATE 100 MG TABLET PO SCH ×2 (10:54→16:57)
[2019-11-21 16:00] VITALS: BP 104/69
[2019-11-21] MEDS: DiphenhydrAMINE HCL 25 MG CAPSULE PO SCH (20:28)
[2019-11-22 08:43] VITALS: BP 114/80
[2019-11-22] MEDS: BENZTROPINE MESYLATE 1 MG TABLET PO SCH ×2 (09:52→16:01)
[2019-11-22] MEDS: PROPRANOLOL HCL 10 MG TABLET PO SCH ×2 (09:52→17:29)
[2019-11-22] MEDS: CloZAPine 100 MG RAPDIS TABLET PO SCH ×2 (09:52→20:16)
[2019-11-22] MEDS: LISINOPRIL 5 MG TABLET PO SCH (09:55)
[2019-11-22] MEDS: QUEtiapine FUMARATE 100 MG TABLET PO SCH ×2 (09:55→16:01)
[2019-11-22] MEDS: MAGNESIUM HYDROXIDE SUSPENSION 30 ML UDCUP PO PRN (10:03)
[2019-11-22] MEDS: DOCUSATE SODIUM 100 MG CAPSULE PO PRN (10:03)
[2019-11-22 16:05] VITALS: BP 120/85
[2019-11-22] MEDS: LORazepam 2 MG TABLET PO PRN (16:07)
[2019-11-22 17:20] VITALS: BP 125/98
[2019-11-22] MEDS: DiphenhydrAMINE HCL 25 MG CAPSULE PO SCH (20:15)
[2019-11-23 09:03] VITALS: BP 111/68
[2019-11-23] MEDS: PROPRANOLOL HCL 10 MG TABLET PO SCH ×2 (10:20→16:09)
[2019-11-23] MEDS: LISINOPRIL 5 MG TABLET PO SCH (10:21)
[2019-11-23] MEDS: BENZTROPINE MESYLATE 1 MG TABLET PO SCH ×2 (10:21→16:09)
[2019-11-23] MEDS: CloZAPine 100 MG RAPDIS TABLET PO SCH ×2 (10:21→20:54)
[2019-11-23] MEDS: QUEtiapine FUMARATE 100 MG TABLET PO SCH ×2 (10:22→16:09)
[2019-11-23] MEDS: DOCUSATE SODIUM 100 MG CAPSULE PO PRN (14:52)
[2019-11-23] MEDS: MAGNESIUM HYDROXIDE SUSPENSION 30 ML UDCUP PO PRN (14:52)
[2019-11-23] MEDS: LORazepam 2 MG TABLET PO PRN (16:10)
[2019-11-23 18:23] VITALS: BP 117/74
[2019-11-23] MEDS: DiphenhydrAMINE HCL 25 MG CAPSULE PO SCH (20:54)
[2019-11-24] MEDS: LISINOPRIL 5 MG TABLET PO SCH (08:34)
[2019-11-24] MEDS: QUEtiapine FUMARATE 100 MG TABLET PO SCH ×2 (08:34→16:43)
[2019-11-24] MEDS: BENZTROPINE MESYLATE 1 MG TABLET PO SCH ×2 (08:34→16:43)
[2019-11-24] MEDS: PROPRANOLOL HCL 10 MG TABLET PO SCH ×2 (08:35→16:43)
[2019-11-24] MEDS: CloZAPine 100 MG RAPDIS TABLET PO SCH ×2 (08:35→20:26)
[2019-11-24 10:05] VITALS: BP 102/60
[2019-11-24 16:01] VITALS: BP 109/72
[2019-11-24] MEDS: LORazepam 2 MG TABLET PO PRN (16:44)
[2019-11-24] MEDS: DiphenhydrAMINE HCL 25 MG CAPSULE PO SCH (20:26)
[2019-11-25] MEDS: CloZAPine 100 MG RAPDIS TABLET PO SCH ×2 (09:31→21:39)
[2019-11-25] MEDS: LISINOPRIL 5 MG TABLET PO SCH (09:32)
[2019-11-25] MEDS: PROPRANOLOL HCL 10 MG TABLET PO SCH ×2 (09:32→17:43)
[2019-11-25] MEDS: BENZTROPINE MESYLATE 1 MG TABLET PO SCH ×2 (09:32→17:43)
[2019-11-25] MEDS: QUEtiapine FUMARATE 100 MG TABLET PO SCH ×2 (09:33→17:43)
[2019-11-25 10:33] VITALS: BP 138/96
[2019-11-25 16:00] VITALS: BP 124/87
[2019-11-25] MEDS: DiphenhydrAMINE HCL 25 MG CAPSULE PO SCH (21:39)
[2019-11-26] MEDS: BENZTROPINE MESYLATE 1 MG TABLET PO SCH ×2 (09:51→16:05)
[2019-11-26] MEDS: LISINOPRIL 5 MG TABLET PO SCH (09:51)
[2019-11-26] MEDS: QUEtiapine FUMARATE 100 MG TABLET PO SCH ×2 (09:51→16:06)
[2019-11-26] MEDS: CloZAPine 100 MG RAPDIS TABLET PO SCH ×2 (09:51→20:33)
[2019-11-26] MEDS: PROPRANOLOL HCL 10 MG TABLET PO SCH ×2 (09:51→16:06)
[2019-11-26 11:08] VITALS: BP 102/55
[2019-11-26 16:28] VITALS: BP 111/54
[2019-11-26] MEDS: DiphenhydrAMINE HCL 25 MG CAPSULE PO SCH (20:33)
[2019-11-27 09:46] VITALS: BP 102/78
[2019-11-27] MEDS: CloZAPine 100 MG RAPDIS TABLET PO SCH ×2 (10:16→20:21)
[2019-11-27] MEDS: BENZTROPINE MESYLATE 1 MG TABLET PO SCH ×2 (10:16→16:35)
[2019-11-27] MEDS: QUEtiapine FUMARATE 100 MG TABLET PO SCH ×2 (10:16→16:35)
[2019-11-27] MEDS: LISINOPRIL 5 MG TABLET PO SCH (10:16)
[2019-11-27] MEDS: PROPRANOLOL HCL 10 MG TABLET PO SCH ×2 (10:16→16:35)
[2019-11-27] MEDS: LORazepam 2 MG TABLET PO PRN (13:56)
[2019-11-27 16:00] VITALS: BP 123/77
[2019-11-27] MEDS: DiphenhydrAMINE HCL 25 MG CAPSULE PO SCH (20:22)
[2019-11-28 08:00] VITALS: BP 128/84
[2019-11-28] MEDS: PROPRANOLOL HCL 10 MG TABLET PO SCH (08:40)
[2019-11-28] MEDS: BENZTROPINE MESYLATE 1 MG TABLET PO SCH (08:40)
[2019-11-28] MEDS: LISINOPRIL 5 MG TABLET PO SCH (08:40)
[2019-11-28] MEDS: QUEtiapine FUMARATE 100 MG TABLET PO SCH (08:40)
[2019-11-28] MEDS: CloZAPine 100 MG RAPDIS TABLET PO SCH (08:41)
[2019-11-28] MEDS ORDERED: DIPH50 PO (13:19)
[2019-11-28] MEDS ORDERED: PROP20TA18 PO (13:22)
[2019-11-28] MEDS ORDERED: BENZ1TAB10 PO (13:28)
== END 2019-11-28 14:18 | disposition home or self-care (01) | DRG 885 ==
LOC: 3EX 01:15 → 3EI 11-19 16:27
PROVIDERS: ADMIT Psychiatry & Neurology Psychiatry; ATTEND Psychiatry & Neurology Psychiatry
DX: F20.0 Paranoid schizophrenia (principal); E11.9 Type 2 diabetes mellitus without complications; F10.10 Alcohol abuse, uncomplicated; I10 Essential (primary) hypertension; G47.00 Insomnia, unspecified; K59.00 Constipation, unspecified; F41.9 Anxiety disorder, unspecified
CPT/HCPCS: 87081; 92526; 92610; G0378

== ENCOUNTER 2019-12-08 00:14 | Emergency (ER) | payer OTHER ==
[~2019-12-08] VITALS: Ht 165.1 cm; Wt 77.3 kg
[~2019-12-08 00:14] MED LIST changes: +BENZ1TAB10 PO; -DIPH25TA20 PO; +DIPH50 PO; -METF-960 PO; +PROP20TA18 PO
[2019-12-08 00:43] LABS: GLUCOSE,POINT OF CARE 137 MG/DL (70-110)
[2019-12-08] MEDS ORDERED: LISI-622 PO (00:49)
[2019-12-08] MEDS ORDERED: PALI234D IM (00:49)
[2019-12-08] MEDS ORDERED: METF-446 PO (00:49)
[2019-12-08] MEDS ORDERED: CLOZ100T31 PO (00:49)
[2019-12-08] MEDS ORDERED: LevETIRAcetam 500 MG TABLET PO ONE (02:00)
[2019-12-08 02:26] LABS: GLUCOSE,POINT OF CARE 121 MG/DL (70-110)
[2019-12-08 02:43] LABS: EOSINOPHILS % (AUTO) 0.8 % (1.0-6.0); HEMATOCRIT 45.9 % (41-53); HEMOGLOBIN 15.6 g/dL (13.5-17.5); LYMPHOCYTES # (AUTO) 1.2 K/uL (1.0-4.8); LYMPHOCYTES % (AUTO) 12.6 % (22.0-44.0); MEAN CORPUSCULAR HEMOGLOBIN 30.3 pg (26.0-34.0); MEAN CORPUSCULAR HGB CONC 34.1 G/dL (31.0-37.0); MEAN CORPUSCULAR VOLUME 89 fL (80-100); MONOCYTES # (AUTO) 0.7 K/uL (0.1-1.0); MONOCYTES % (AUTO) 7.7 % (2.0-9.0); NEUTROPHILS # (AUTO) 7.5 K/uL (1.8-7.7); NEUTROPHILS % (AUTO) 78.9 % (40.0-70.0); PLATELET COUNT (AUTO) 179 K/uL (150-450); RED BLOOD CELL COUNT(AUTO) 5.17 MIL/uL (4.50-5.90); RED CELL DISTRIBUTION WIDTH 14.4 % (11.5-14.5)
[2019-12-08 02:48] LABS: ANION GAP 12 mmol/L (8-16); CALCIUM, TOTAL 8.9 mg/dL (8.8-10.5); CARBON DIOXIDE 24 mmol/L (22-29); CHLORIDE 103 mmol/L (98-107); CREATININE 1.21 mg/dL (0.60-1.30); GLOMERULAR FILTR. RATE CALC > 60 mL/min (>60); GLUCOSE,RANDOM 153 mg/dL (70-110); POTASSIUM 4.7 mmol/L (3.5-5.1); SODIUM SERUM 139 mmol/L (136-145); UREA NITROGEN, BLOOD 14 mg/dL (7-18)
[2019-12-08 02:53] LABS: ALANINE AMINOTRANSFERASE 61 U/L (12-78); ALBUMIN 3.9 g/dL (3.4-5.0); ALKALINE PHOSPHATASE 80 U/L (46-116); ASPARTATE AMINOTRANSFERASE 38 U/L (15-37); BILIRUBIN,TOTAL 0.2 mg/dL (0.1-1.0); TOTAL PROTEIN, SERUM 7.2 g/dL (6.4-8.2)
[2019-12-08 06:00] VITALS: BP 141/88
== END 2019-12-08 06:01 | disposition home or self-care (01) ==
LOC: EMS 00:15
DX: R56.9 Unspecified convulsions (principal); R32 Unspecified urinary incontinence; F41.9 Anxiety disorder, unspecified; E11.9 Type 2 diabetes mellitus without complications; I10 Essential (primary) hypertension; F20.9 Schizophrenia, unspecified; Z79.899 Other long term (current) drug therapy; Z79.84 Long term (current) use of oral hypoglycemic drugs
CPT/HCPCS: 70450

== ENCOUNTER 2020-04-04 13:53 | Inpatient (IN) | payer MEDICARE, MEDICAID ==
[~2020-04-04] VITALS: Ht 167.6 cm; Wt 79.5 kg
[~2020-04-04 13:53] MED LIST changes: -BENZ1TAB10 PO; -DIPH50 PO; +LEVE250T55 PO; -LISI-660 PO; +METF-446 PO; -PROP20TA18 PO
[2020-04-04] MEDS ORDERED: LORazepam 2 MG TABLET PO ONE (15:15)
[2020-04-04] MEDS ORDERED: LORazepam 2 MG/ML VIAL IM ONE (15:15)
[2020-04-04] MEDS ORDERED: QUEtiapine FUMARATE 100 MG TABLET PO ONE (15:15)
[2020-04-04 15:43] LABS: BASOPHILS % (AUTO) 0.2 % (0.0-2.0); EOSINOPHILS % (AUTO) 0.2 % (1.0-6.0); HEMATOCRIT 49.4 % (41-53); HEMOGLOBIN 17.5 g/dL (13.5-17.5); LYMPHOCYTES # (AUTO) 1.1 K/uL (1.0-4.8); LYMPHOCYTES % (AUTO) 12.9 % (22.0-44.0); MEAN CORPUSCULAR HEMOGLOBIN 32.2 pg (26.0-34.0); MEAN CORPUSCULAR HGB CONC 35.4 G/dL (31.0-37.0); MEAN CORPUSCULAR VOLUME 91 fL (80-100); MONOCYTES # (AUTO) 0.7 K/uL (0.1-1.0); NEUTROPHILS # (AUTO) 6.9 K/uL (1.8-7.7); NEUTROPHILS % (AUTO) 78.7 % (40.0-70.0); PLATELET COUNT (AUTO) 261 K/uL (150-450); RED BLOOD CELL COUNT(AUTO) 5.43 MIL/uL (4.50-5.90); RED CELL DISTRIBUTION WIDTH 13.8 % (11.5-14.5)
[2020-04-04 16:07] LABS: ANION GAP 12 mmol/L (8-16); CALCIUM, TOTAL 9.6 mg/dL (8.8-10.5); CARBON DIOXIDE 24 mmol/L (22-29); CHLORIDE 105 mmol/L (98-107); CREATININE 0.74 mg/dL (0.60-1.30); GLOMERULAR FILTR. RATE CALC > 60 mL/min (>60); GLUCOSE,RANDOM 102 mg/dL (70-110); POTASSIUM 3.5 mmol/L (3.5-5.1); SODIUM SERUM 141 mmol/L (136-145); UREA NITROGEN, BLOOD 10 mg/dL (7-18)
[2020-04-04 16:12] LABS: ALANINE AMINOTRANSFERASE 34 U/L (12-78); ALBUMIN 4.5 g/dL (3.4-5.0); ALKALINE PHOSPHATASE 104 U/L (46-116); ASPARTATE AMINOTRANSFERASE 21 U/L (15-37); BILIRUBIN,TOTAL 0.4 mg/dL (0.1-1.0); TOTAL PROTEIN, SERUM 7.9 g/dL (6.4-8.2)
[2020-04-04 17:38] LABS: AMPHET/METH SCREEN,URINE NEGATIVE (NEGATIVE); BARBITURATE SCREEN, URINE NEGATIVE (NEGATIVE); BENZODIAZEPINES SCREEN,URINE NEGATIVE (NEGATIVE); CANNABINOID SCREEN,URINE NEGATIVE (NEGATIVE); COCAINE SCREEN,URINE NEGATIVE (NEGATIVE); METHADONE SCREEN, URINE NEGATIVE (NEGATIVE); OPIATE SCREEN,URINE NEGATIVE (NEGATIVE)
[2020-04-04 17:41] LABS: PHENCYCLIDINE SCREEN,URINE NEGATIVE (NEGATIVE)
[2020-04-04 18:11] LABS: COVID AG,FIA SOURCE NASOPHARYNGEAL
[2020-04-04] MEDS ORDERED: ZOLPIDEM TARTRATE 10 MG TABLET PO PRN (19:45)
[2020-04-04 20:28] LABS: APPEARANCE,URINE CLEAR (CLEAR); BILIRUBIN,URINE NEGATIVE (NEGATIVE); GLUCOSE, URINE (UA) NEGATIVE (NEGATIVE); KETONES,URINE 15 mg/dL (NEGATIVE); LEUKOCYTE ESTERASE ,URINE NEGATIVE (NEGATIVE); NITRATE,URINE NEGATIVE (NEGATIVE); OCCULT BLOOD,URINE NEGATIVE (NEGATIVE); PH,URINE 6.5 (5.0-8.0); PROTEIN,URINE NEGATIVE (NEGATIVE); UROBILINOGEN,URINE 0.2 mg/dL (<=1.0)
[2020-04-04] MEDS ORDERED: DEXTROSE 50%-WATER 25 GM/50 ML SYRINGE IVP PRN (21:15)
[2020-04-04 21:33] VITALS: BP 140/110
[2020-04-05 07:19] LABS: CHOL/HDL RATIO 4.3 (4.2-7.3)
[2020-04-05] MEDS: MetFORMIN HCL 500 MG TABLET PO SCH ×2 (07:20→17:30)
[2020-04-05 08:25] LABS: GLUCOMETER DEV NAME(LOC) 3E.I 2; GLUCOSE,POINT OF CARE 100 MG/DL (70-110)
[2020-04-05] MEDS: LevETIRAcetam 250 MG TABLET PO SCH ×3 (09:00→20:12)
[2020-04-05 09:27] VITALS: BP 156/97
[2020-04-05] MEDS ORDERED: LORazepam 2 MG/ML VIAL IM ONE ×2 (14:15→15:30)
[2020-04-05 16:00] VITALS: BP 121/70
[2020-04-05 17:18] LABS: GLUCOMETER DEV NAME(LOC) 3E.I 2; GLUCOSE,POINT OF CARE 87 MG/DL (70-110)
[2020-04-05] MEDS ORDERED: LOPERAMIDE HCL 2 MG CAPSULE PO PRN (20:00)
[2020-04-05] MEDS ORDERED: CloNIDine HCL 0.1 MG TABLET PO PRN (20:00)
[2020-04-05] MEDS ORDERED: ALBUTEROL SULFATE HFA 90 MCG/PUFF 8 GM INHALER IH PRN (20:00)
[2020-04-05] MEDS ORDERED: BENZOCAINE/MENTHOL LOZENGE PO PRN (20:00)
[2020-04-05] MEDS ORDERED: MAG HYDROX/AL HYDROX/SIMETH ES 30 ML SUSPENSION UDCUP PO PRN (20:00)
[2020-04-05] MEDS ORDERED: DOCUSATE SODIUM 100 MG CAPSULE PO PRN (20:00)
[2020-04-05] MEDS ORDERED: PETROLATUM,WHITE 28 GM JELLY TP PRN (20:00)
[2020-04-05] MEDS ORDERED: MAGNESIUM HYDROXIDE SUSPENSION 30 ML UDCUP PO PRN (20:00)
[2020-04-05] MEDS ORDERED: ACETAMINOPHEN 325 MG TABLET PO PRN (20:00)
[2020-04-05] MEDS ORDERED: BACITRACIN 28 GM OINTMENT TP PRN (20:00)
[2020-04-05] MEDS ORDERED: ONDANSETRON HCL 4 MG TABLET PO PRN (20:00)
[2020-04-05] MEDS ORDERED: OMEPRAZOLE 20 MG CAPSULE PO PRN (20:00)
[2020-04-05] MEDS ORDERED: IBUPROFEN 600 MG TABLET PO PRN (20:00)
[2020-04-05 20:42] LABS: GLUCOMETER DEV NAME(LOC) 3E.I 2; GLUCOSE,POINT OF CARE 106 MG/DL (70-110)
[2020-04-05] MEDS ORDERED: PNEUMOCOCCAL VACCINE POLYVALENT 0.5 ML VIAL [PPSV23] IM ONE (21:00)
[2020-04-05] MEDS: LORazepam 2 MG TABLET PO PRN (21:13)
[2020-04-05] MEDS: HALOPERIDOL 5 MG TABLET PO PRN (21:13)
[2020-04-06] MEDS: MetFORMIN HCL 500 MG TABLET PO SCH ×3 (07:30→17:30)
[2020-04-06] MEDS: LevETIRAcetam 250 MG TABLET PO SCH ×3 (07:51→17:00)
[2020-04-06] MEDS: HALOPERIDOL 5 MG TABLET PO PRN (07:51)
[2020-04-06] MEDS: LORazepam 2 MG TABLET PO PRN (07:51)
[2020-04-06 13:49] LABS: GLUCOMETER DEV NAME(LOC) 3E.I 2; GLUCOSE,POINT OF CARE 174 MG/DL (70-110)
[2020-04-06 17:01] VITALS: BP 108/79
[2020-04-06 17:33] LABS: GLUCOMETER DEV NAME(LOC) 3E.I 2; GLUCOSE,POINT OF CARE 90 MG/DL (70-110)
[2020-04-06 21:33] LABS: GLUCOMETER DEV NAME(LOC) 3E.I 2; GLUCOSE,POINT OF CARE 107 MG/DL (70-110)
[2020-04-07 05:31] LABS: GLUCOMETER DEV NAME(LOC) 3E.I 2; GLUCOSE,POINT OF CARE 119 MG/DL (70-110)
[2020-04-07] MEDS: MetFORMIN HCL 500 MG TABLET PO SCH ×2 (06:20→17:39)
[2020-04-07] MEDS: LevETIRAcetam 250 MG TABLET PO SCH ×2 (09:00→17:38)
[2020-04-07 11:30] LABS: GLUCOMETER DEV NAME(LOC) 3E.I 2; GLUCOSE,POINT OF CARE 96 MG/DL (70-110)
[2020-04-07] MEDS ORDERED: LORazepam 2 MG/ML VIAL IM ONE (12:00)
[2020-04-07] MEDS: INSULIN LISPRO 100 UNITS/ML SQ PRN (12:48)
[2020-04-07 16:49] VITALS: BP 116/82
[2020-04-07 17:38] LABS: GLUCOMETER DEV NAME(LOC) 3E.I 2; GLUCOSE,POINT OF CARE 110 MG/DL (70-110)
[2020-04-07] MEDS: CloZAPine 100 MG TABLET PO SCH (17:38)
[2020-04-07 21:54] LABS: GLUCOMETER DEV NAME(LOC) 3E.I 2; GLUCOSE,POINT OF CARE 106 MG/DL (70-110)
[2020-04-08 05:26] LABS: GLUCOMETER DEV NAME(LOC) 3E.I 2; GLUCOSE,POINT OF CARE 108 MG/DL (70-110)
[2020-04-08] MEDS: MetFORMIN HCL 500 MG TABLET PO SCH ×2 (06:50→19:02)
[2020-04-08] MEDS: LevETIRAcetam 250 MG TABLET PO SCH ×2 (09:19→19:03)
[2020-04-08] MEDS: CloZAPine 100 MG TABLET PO SCH ×2 (09:19→19:02)
[2020-04-08 10:00] VITALS: BP 142/91
[2020-04-08 11:31] LABS: GLUCOMETER DEV NAME(LOC) 3E.I 2; GLUCOSE,POINT OF CARE 98 MG/DL (70-110)
[2020-04-08] MEDS: INSULIN LISPRO 100 UNITS/ML SQ PRN (11:37)
[2020-04-08 16:00] VITALS: BP 136/94
[2020-04-08 16:32] LABS: GLUCOMETER DEV NAME(LOC) 3E.I 2; GLUCOSE,POINT OF CARE 86 MG/DL (70-110)
[2020-04-08 21:37] LABS: GLUCOMETER DEV NAME(LOC) 3E.I 2; GLUCOSE,POINT OF CARE 117 MG/DL (70-110)
[2020-04-09 05:37] LABS: GLUCOMETER DEV NAME(LOC) 3E.I 2; GLUCOSE,POINT OF CARE 91 MG/DL (70-110)
[2020-04-09] MEDS: MetFORMIN HCL 500 MG TABLET PO SCH ×2 (07:09→16:42)
[2020-04-09 08:00] VITALS: BP 118/85
[2020-04-09] MEDS: LevETIRAcetam 250 MG TABLET PO SCH ×2 (09:06→16:42)
[2020-04-09] MEDS: CloZAPine 100 MG TABLET PO SCH ×2 (09:06→16:42)
[2020-04-09] MEDS: INSULIN LISPRO 100 UNITS/ML SQ PRN ×3 (11:33→21:18)
[2020-04-09 11:44] LABS: GLUCOMETER DEV NAME(LOC) 3EX.; GLUCOSE,POINT OF CARE 85 MG/DL (70-110)
[2020-04-09 16:00] VITALS: BP 127/83
[2020-04-09 17:08] LABS: GLUCOMETER DEV NAME(LOC) 3E.I 2; GLUCOSE,POINT OF CARE 142 MG/DL (70-110)
[2020-04-09 21:29] LABS: GLUCOMETER DEV NAME(LOC) 3E.I 2; GLUCOSE,POINT OF CARE 89 MG/DL (70-110)
[2020-04-10 05:49] LABS: GLUCOMETER DEV NAME(LOC) 3E.I 2; GLUCOSE,POINT OF CARE 89 MG/DL (70-110)
[2020-04-10] MEDS: MetFORMIN HCL 500 MG TABLET PO SCH ×2 (06:50→17:30)
[2020-04-10 08:00] VITALS: BP 118/80
[2020-04-10] MEDS: CloZAPine 100 MG TABLET PO SCH ×2 (11:15→17:00)
[2020-04-10] MEDS: LevETIRAcetam 250 MG TABLET PO SCH ×2 (11:17→17:00)
[2020-04-10 11:50] LABS: GLUCOMETER DEV NAME(LOC) 3EX.; GLUCOSE,POINT OF CARE 62 MG/DL (70-110)
[2020-04-10] MEDS: INSULIN LISPRO 100 UNITS/ML SQ PRN (13:34)
[2020-04-10 16:00] VITALS: BP 110/75
[2020-04-10 18:14] LABS: GLUCOMETER DEV NAME(LOC) 3E.I 2; GLUCOSE,POINT OF CARE 87 MG/DL (70-110)
[2020-04-10 22:58] LABS: GLUCOMETER DEV NAME(LOC) 3E.I 2; GLUCOSE,POINT OF CARE 85 MG/DL (70-110)
[2020-04-11 05:33] LABS: GLUCOMETER DEV NAME(LOC) 3E.I 2; GLUCOSE,POINT OF CARE 90 MG/DL (70-110)
[2020-04-11] MEDS: MetFORMIN HCL 500 MG TABLET PO SCH ×2 (06:50→16:47)
[2020-04-11 08:00] VITALS: BP 129/94
[2020-04-11] MEDS: CloZAPine 100 MG TABLET PO SCH ×2 (08:43→16:22)
[2020-04-11] MEDS: LevETIRAcetam 250 MG TABLET PO SCH ×2 (08:43→16:22)
[2020-04-11 11:32] LABS: GLUCOMETER DEV NAME(LOC) 3EX.; GLUCOSE,POINT OF CARE 96 MG/DL (70-110)
[2020-04-11 17:47] LABS: GLUCOMETER DEV NAME(LOC) 3E.I 2; GLUCOSE,POINT OF CARE 102 MG/DL (70-110)
[2020-04-11 19:50] VITALS: BP 146/90
[2020-04-11 21:23] LABS: GLUCOMETER DEV NAME(LOC) 3E.I 2; GLUCOSE,POINT OF CARE 101 MG/DL (70-110)
[2020-04-12 05:34] LABS: GLUCOMETER DEV NAME(LOC) 3E.I 2; GLUCOSE,POINT OF CARE 112 MG/DL (70-110)
[2020-04-12 06:25] LABS: BASOPHILS % (AUTO) 0.1 % (0.0-2.0); HEMATOCRIT 53.5 % (41-53); HEMOGLOBIN 18.5 g/dL (13.5-17.5); LYMPHOCYTES # (AUTO) 1.5 K/uL (1.0-4.8); MEAN CORPUSCULAR HEMOGLOBIN 31.3 pg (26.0-34.0); MEAN CORPUSCULAR HGB CONC 34.7 G/dL (31.0-37.0); MEAN CORPUSCULAR VOLUME 90 fL (80-100); MONOCYTES # (AUTO) 0.8 K/uL (0.1-1.0); MONOCYTES % (AUTO) 10.6 % (2.0-9.0); NEUTROPHILS # (AUTO) 5.1 K/uL (1.8-7.7); NEUTROPHILS % (AUTO) 68.3 % (40.0-70.0); PLATELET COUNT (AUTO) 225 K/uL (150-450); RED BLOOD CELL COUNT(AUTO) 5.93 MIL/uL (4.50-5.90); RED CELL DISTRIBUTION WIDTH 13.7 % (11.5-14.5)
[2020-04-12] MEDS: MetFORMIN HCL 500 MG TABLET PO SCH ×2 (06:49→16:54)
[2020-04-12] MEDS: CloZAPine 100 MG TABLET PO SCH ×2 (09:13→16:54)
[2020-04-12] MEDS: LevETIRAcetam 250 MG TABLET PO SCH ×2 (09:13→16:53)
[2020-04-12 11:33] LABS: GLUCOMETER DEV NAME(LOC) 3EX.; GLUCOSE,POINT OF CARE 107 MG/DL (70-110)
[2020-04-12 17:41] VITALS: BP 128/76
[2020-04-12 18:10] LABS: GLUCOMETER DEV NAME(LOC) 3E.I 2; GLUCOSE,POINT OF CARE 105 MG/DL (70-110)
[2020-04-12 21:31] LABS: GLUCOMETER DEV NAME(LOC) 3E.I 2; GLUCOSE,POINT OF CARE 96 MG/DL (70-110)
[2020-04-13 05:33] LABS: GLUCOMETER DEV NAME(LOC) 3E.I 2; GLUCOSE,POINT OF CARE 80 MG/DL (70-110)
[2020-04-13] MEDS: MetFORMIN HCL 500 MG TABLET PO SCH ×2 (06:38→17:18)
[2020-04-13] MEDS: LevETIRAcetam 250 MG TABLET PO SCH ×2 (09:00→17:17)
[2020-04-13] MEDS: CloZAPine 100 MG TABLET PO SCH ×2 (09:00→17:17)
[2020-04-13 09:26] VITALS: BP 117/86
[2020-04-13] MEDS: INSULIN LISPRO 100 UNITS/ML SQ PRN (13:12)
[2020-04-13 13:27] LABS: GLUCOMETER DEV NAME(LOC) 3E.I 2; GLUCOSE,POINT OF CARE 125 MG/DL (70-110)
[2020-04-13 17:26] LABS: GLUCOMETER DEV NAME(LOC) 3E.I 2; GLUCOSE,POINT OF CARE 100 MG/DL (70-110)
[2020-04-13 21:05] LABS: GLUCOMETER DEV NAME(LOC) 3E.I 2; GLUCOSE,POINT OF CARE 109 MG/DL (70-110)
[2020-04-14 05:41] LABS: GLUCOMETER DEV NAME(LOC) 3E.I 2; GLUCOSE,POINT OF CARE 86 MG/DL (70-110)
[2020-04-14] MEDS: INSULIN LISPRO 100 UNITS/ML SQ PRN ×2 (06:54→11:42)
[2020-04-14] MEDS: MetFORMIN HCL 500 MG TABLET PO SCH ×2 (06:57→16:56)
[2020-04-14] MEDS: CloZAPine 100 MG TABLET PO SCH ×2 (09:33→16:56)
[2020-04-14] MEDS: LevETIRAcetam 250 MG TABLET PO SCH ×2 (09:34→16:56)
[2020-04-14 09:41] VITALS: BP 123/90
[2020-04-14 11:41] LABS: GLUCOMETER DEV NAME(LOC) 3E.I 2; GLUCOSE,POINT OF CARE 101 MG/DL (70-110)
[2020-04-14 17:14] LABS: GLUCOMETER DEV NAME(LOC) 3E.I 2; GLUCOSE,POINT OF CARE 107 MG/DL (70-110)
[2020-04-14 18:24] VITALS: BP 117/76
[2020-04-14 21:45] LABS: GLUCOMETER DEV NAME(LOC) 3E.I 2; GLUCOSE,POINT OF CARE 100 MG/DL (70-110)
[2020-04-15 06:27] LABS: GLUCOMETER DEV NAME(LOC) 3E.I 2; GLUCOSE,POINT OF CARE 84 MG/DL (70-110)
[2020-04-15] MEDS: MetFORMIN HCL 500 MG TABLET PO SCH ×2 (06:50→16:51)
[2020-04-15] MEDS: CloZAPine 100 MG TABLET PO SCH ×2 (08:55→16:51)
[2020-04-15] MEDS: LevETIRAcetam 250 MG TABLET PO SCH ×2 (08:56→16:51)
[2020-04-15 09:15] VITALS: BP 130/90
[2020-04-15 11:02] LABS: ALANINE AMINOTRANSFERASE 27 U/L (12-78); ALBUMIN 4.2 g/dL (3.4-5.0); ALKALINE PHOSPHATASE 81 U/L (46-116); ANION GAP 10 mmol/L (8-16); ASPARTATE AMINOTRANSFERASE 28 U/L (15-37); BILIRUBIN,TOTAL 0.3 mg/dL (0.1-1.0); CALCIUM, TOTAL 9.4 mg/dL (8.8-10.5); CARBON DIOXIDE 27 mmol/L (22-29); CHLORIDE 103 mmol/L (98-107); CREATININE 0.85 mg/dL (0.60-1.30); GLOMERULAR FILTR. RATE CALC > 60 mL/min (>60); GLUCOSE,RANDOM 89 mg/dL (70-110); PHOSPHORUS 3.6 mg/dL (2.5-4.9); POTASSIUM 4.2 mmol/L (3.5-5.1); SODIUM SERUM 140 mmol/L (136-145); TOTAL PROTEIN, SERUM 7.4 g/dL (6.4-8.2); UREA NITROGEN, BLOOD 17 mg/dL (7-18)
[2020-04-15 11:26] LABS: GLUCOMETER DEV NAME(LOC) 3E.I 2; GLUCOSE,POINT OF CARE 78 MG/DL (70-110)
[2020-04-15] MEDS: INSULIN LISPRO 100 UNITS/ML SQ PRN (12:53)
[2020-04-15] MEDS: LORazepam 2 MG TABLET PO PRN (14:46)
[2020-04-15 16:00] VITALS: BP 135/92
[2020-04-15 16:48] LABS: GLUCOMETER DEV NAME(LOC) 3E.I 2; GLUCOSE,POINT OF CARE 81 MG/DL (70-110)
[2020-04-15 21:46] LABS: GLUCOMETER DEV NAME(LOC) 3E.I 2; GLUCOSE,POINT OF CARE 88 MG/DL (70-110)
[2020-04-16 05:49] LABS: GLUCOMETER DEV NAME(LOC) 3E.I 2; GLUCOSE,POINT OF CARE 98 MG/DL (70-110)
[2020-04-16] MEDS: MetFORMIN HCL 500 MG TABLET PO SCH ×2 (07:08→16:53)
[2020-04-16] MEDS: CloZAPine 100 MG TABLET PO SCH ×2 (08:15→16:53)
[2020-04-16] MEDS: LevETIRAcetam 250 MG TABLET PO SCH ×2 (08:15→16:52)
[2020-04-16] MEDS: LORazepam 2 MG TABLET PO PRN (09:09)
[2020-04-16 09:49] VITALS: BP 134/96
[2020-04-16 11:44] LABS: GLUCOMETER DEV NAME(LOC) 3E.I 2; GLUCOSE,POINT OF CARE 111 MG/DL (70-110)
[2020-04-16 16:43] VITALS: BP 109/72
[2020-04-16 16:51] LABS: GLUCOMETER DEV NAME(LOC) 3E.I 2; GLUCOSE,POINT OF CARE 108 MG/DL (70-110)
[2020-04-16 21:19] LABS: GLUCOMETER DEV NAME(LOC) 3E.I 2; GLUCOSE,POINT OF CARE 89 MG/DL (70-110)
[2020-04-17 06:18] VITALS: BP 120/86
[2020-04-17] MEDS: MetFORMIN HCL 500 MG TABLET PO SCH ×2 (06:33→17:07)
[2020-04-17] MEDS: INSULIN LISPRO 100 UNITS/ML SQ PRN (06:34)
[2020-04-17 06:46] LABS: GLUCOMETER DEV NAME(LOC) 3E.I 2; GLUCOSE,POINT OF CARE 148 MG/DL (70-110)
[2020-04-17 08:15] VITALS: BP 127/93
[2020-04-17] MEDS: LevETIRAcetam 250 MG TABLET PO SCH ×2 (08:47→17:06)
[2020-04-17] MEDS: CloZAPine 100 MG TABLET PO SCH ×2 (09:12→17:06)
[2020-04-17 09:30] VITALS: BP 153/96
[2020-04-17] MEDS: LORazepam 2 MG TABLET PO PRN (09:34)
[2020-04-17 11:00] LABS: GLUCOMETER DEV NAME(LOC) 3E.I 2; GLUCOSE,POINT OF CARE 87 MG/DL (70-110)
[2020-04-17 17:49] LABS: GLUCOMETER DEV NAME(LOC) 3E.I 2; GLUCOSE,POINT OF CARE 79 MG/DL (70-110)
[2020-04-17 18:38] VITALS: BP 99/58
[2020-04-17 21:02] LABS: GLUCOMETER DEV NAME(LOC) 3E.I 2; GLUCOSE,POINT OF CARE 73 MG/DL (70-110)
[2020-04-18 04:35] VITALS: BP 120/80
[2020-04-18 05:32] LABS: GLUCOMETER DEV NAME(LOC) 3E.I 2; GLUCOSE,POINT OF CARE 118 MG/DL (70-110)
[2020-04-18] MEDS: MetFORMIN HCL 500 MG TABLET PO SCH ×2 (06:35→17:30)
[2020-04-18] MEDS: CloZAPine 100 MG TABLET PO SCH ×2 (08:23→20:43)
[2020-04-18] MEDS: LevETIRAcetam 250 MG TABLET PO SCH ×2 (08:23→20:44)
[2020-04-18 08:41] VITALS: BP 145/97
[2020-04-18] MEDS: LORazepam 2 MG TABLET PO PRN (10:36)
[2020-04-18 16:15] VITALS: BP 118/69
[2020-04-18 16:18] LABS: GLUCOMETER DEV NAME(LOC) 3E.I 2; GLUCOSE,POINT OF CARE 100 MG/DL (70-110)
[2020-04-18 17:15] LABS: GLUCOMETER DEV NAME(LOC) 3E.I 2; GLUCOSE,POINT OF CARE 142 MG/DL (70-110)
[2020-04-18 21:17] LABS: GLUCOMETER DEV NAME(LOC) 3E.I 2; GLUCOSE,POINT OF CARE 105 MG/DL (70-110)
[2020-04-19 05:49] LABS: GLUCOMETER DEV NAME(LOC) 3E.I 2; GLUCOSE,POINT OF CARE 112 MG/DL (70-110)
[2020-04-19 05:53] VITALS: BP 124/80
[2020-04-19 06:32] LABS: BASOPHILS % (AUTO) 0.3 % (0.0-2.0); EOSINOPHILS % (AUTO) 0.8 % (1.0-6.0); HEMATOCRIT 45.8 % (41-53); HEMOGLOBIN 15.8 g/dL (13.5-17.5); LYMPHOCYTES # (AUTO) 1.4 K/uL (1.0-4.8); LYMPHOCYTES % (AUTO) 20.2 % (22.0-44.0); MEAN CORPUSCULAR HGB CONC 34.5 G/dL (31.0-37.0); MEAN CORPUSCULAR VOLUME 90 fL (80-100); MONOCYTES # (AUTO) 0.5 K/uL (0.1-1.0); NEUTROPHILS # (AUTO) 4.9 K/uL (1.8-7.7); NEUTROPHILS % (AUTO) 70.7 % (40.0-70.0); PLATELET COUNT (AUTO) 221 K/uL (150-450); RED BLOOD CELL COUNT(AUTO) 5.11 MIL/uL (4.50-5.90); RED CELL DISTRIBUTION WIDTH 13.3 % (11.5-14.5)
[2020-04-19] MEDS: MetFORMIN HCL 500 MG TABLET PO SCH ×2 (06:34→17:32)
[2020-04-19] MEDS: CloZAPine 100 MG TABLET PO SCH ×2 (09:21→17:01)
[2020-04-19] MEDS: LevETIRAcetam 250 MG TABLET PO SCH ×2 (09:21→17:01)
[2020-04-19 09:51] VITALS: BP 112/86
[2020-04-19 11:03] LABS: GLUCOMETER DEV NAME(LOC) 3E.I 2; GLUCOSE,POINT OF CARE 94 MG/DL (70-110)
[2020-04-19] MEDS: INSULIN LISPRO 100 UNITS/ML SQ PRN (11:15)
[2020-04-19 16:15] VITALS: BP 126/68
[2020-04-19 17:19] LABS: GLUCOMETER DEV NAME(LOC) 3E.I 2; GLUCOSE,POINT OF CARE 127 MG/DL (70-110)
[2020-04-19 21:19] LABS: GLUCOMETER DEV NAME(LOC) 3E.I 2; GLUCOSE,POINT OF CARE 99 MG/DL (70-110)
[2020-04-20 05:51] LABS: GLUCOMETER DEV NAME(LOC) 3E.I 2; GLUCOSE,POINT OF CARE 97 MG/DL (70-110)
[2020-04-20 06:43] VITALS: BP 122/86
[2020-04-20] MEDS: MetFORMIN HCL 500 MG TABLET PO SCH ×2 (06:58→17:43)
[2020-04-20] MEDS: LevETIRAcetam 250 MG TABLET PO SCH ×2 (08:29→17:43)
[2020-04-20] MEDS: CloZAPine 100 MG TABLET PO SCH ×2 (08:29→17:43)
[2020-04-20] MEDS: LORazepam 2 MG TABLET PO PRN (08:30)
[2020-04-20 11:31] LABS: GLUCOMETER DEV NAME(LOC) 3E.I 2; GLUCOSE,POINT OF CARE 83 MG/DL (70-110)
[2020-04-20 16:00] VITALS: BP 103/72
[2020-04-20 16:49] LABS: GLUCOMETER DEV NAME(LOC) 3E.I 2; GLUCOSE,POINT OF CARE 124 MG/DL (70-110)
[2020-04-20] MEDS: INSULIN LISPRO 100 UNITS/ML SQ PRN ×2 (17:48→23:03)
[2020-04-20 21:41] LABS: GLUCOMETER DEV NAME(LOC) 3E.I 2; GLUCOSE,POINT OF CARE 119 MG/DL (70-110)
[2020-04-21 04:05] VITALS: BP 127/93
[2020-04-21 05:35] LABS: GLUCOMETER DEV NAME(LOC) 3E.I 2; GLUCOSE,POINT OF CARE 121 MG/DL (70-110)
[2020-04-21] MEDS: MetFORMIN HCL 500 MG TABLET PO SCH ×2 (06:39→17:01)
[2020-04-21 08:15] VITALS: BP 132/94
[2020-04-21] MEDS: CloZAPine 100 MG TABLET PO SCH ×2 (08:18→17:01)
[2020-04-21] MEDS: LevETIRAcetam 250 MG TABLET PO SCH ×2 (08:19→17:02)
[2020-04-21 11:59] LABS: GLUCOMETER DEV NAME(LOC) 3E.I 2; GLUCOSE,POINT OF CARE 130 MG/DL (70-110)
[2020-04-21] MEDS: LORazepam 2 MG TABLET PO PRN (12:33)
[2020-04-21] MEDS: HALOPERIDOL 5 MG TABLET PO PRN (12:57)
[2020-04-21 16:00] VITALS: BP 100/62
[2020-04-21 16:32] LABS: GLUCOMETER DEV NAME(LOC) 3E.I 2; GLUCOSE,POINT OF CARE 105 MG/DL (70-110)
[2020-04-21 21:22] LABS: GLUCOMETER DEV NAME(LOC) 3E.I 2; GLUCOSE,POINT OF CARE 83 MG/DL (70-110)
[2020-04-22 05:33] LABS: GLUCOMETER DEV NAME(LOC) 3E.I 2; GLUCOSE,POINT OF CARE 119 MG/DL (70-110)
[2020-04-22 06:13] VITALS: BP 122/84
[2020-04-22] MEDS: MetFORMIN HCL 500 MG TABLET PO SCH ×2 (06:37→17:03)
[2020-04-22 08:00] VITALS: BP 146/69
[2020-04-22] MEDS: LevETIRAcetam 250 MG TABLET PO SCH ×2 (09:01→17:02)
[2020-04-22] MEDS: CloZAPine 100 MG TABLET PO SCH ×2 (09:01→17:03)
[2020-04-22 11:31] LABS: GLUCOMETER DEV NAME(LOC) 3E.I 2; GLUCOSE,POINT OF CARE 97 MG/DL (70-110)
[2020-04-22] MEDS: BENZTROPINE MESYLATE 1 MG TABLET PO SCH ×2 (11:36→17:03)
[2020-04-22] MEDS: INSULIN LISPRO 100 UNITS/ML SQ PRN (11:39)
[2020-04-22 16:00] VITALS: BP 109/62
[2020-04-22 17:27] LABS: GLUCOMETER DEV NAME(LOC) 3E.I 2; GLUCOSE,POINT OF CARE 95 MG/DL (70-110)
[2020-04-22 21:13] LABS: GLUCOMETER DEV NAME(LOC) 3E.I 2; GLUCOSE,POINT OF CARE 94 MG/DL (70-110)
[2020-04-23 03:37] VITALS: BP 116/70
[2020-04-23 05:33] LABS: GLUCOMETER DEV NAME(LOC) 3E.I 2; GLUCOSE,POINT OF CARE 78 MG/DL (70-110)
[2020-04-23] MEDS: MetFORMIN HCL 500 MG TABLET PO SCH ×2 (07:01→17:11)
[2020-04-23] MEDS: LORazepam 2 MG TABLET PO PRN (08:14)
[2020-04-23] MEDS: LevETIRAcetam 250 MG TABLET PO SCH ×2 (08:14→17:11)
[2020-04-23] MEDS: CloZAPine 100 MG TABLET PO SCH ×2 (08:15→17:11)
[2020-04-23] MEDS: HALOPERIDOL 5 MG TABLET PO PRN (08:15)
[2020-04-23] MEDS: BENZTROPINE MESYLATE 1 MG TABLET PO SCH ×2 (08:15→17:11)
[2020-04-23 08:59] VITALS: BP 136/96
[2020-04-23 11:34] LABS: GLUCOMETER DEV NAME(LOC) 3E.I 2; GLUCOSE,POINT OF CARE 74 MG/DL (70-110)
[2020-04-23] MEDS ORDERED: CLOZ100T32 PO (14:57)
[2020-04-23] MEDS ORDERED: BENZ1TAB10 PO (14:58)
[2020-04-23 15:00] LABS: COVID AG,FIA SOURCE NASOPHARYNGEAL
[2020-04-23 17:47] LABS: GLUCOMETER DEV NAME(LOC) 3E.I 2; GLUCOSE,POINT OF CARE 126 MG/DL (70-110)
== END 2020-04-23 19:06 | disposition home or self-care (01) | DRG 885 ==
LOC: EMS 13:53 → 3EX 19:30 → 3EI 04-12 14:51
PROVIDERS: ADMIT Psychiatry & Neurology Psychiatry; ATTEND Psychiatry & Neurology Psychiatry
PROC: 3E0234Z Introduction of Serum, Toxoid and Vaccine into Muscle, Percutaneous Approach (ICD-10-PCS; principal; 2020-04-05)
DX: F20.0 Paranoid schizophrenia (principal); E11.9 Type 2 diabetes mellitus without complications; I10 Essential (primary) hypertension; E78.5 Hyperlipidemia, unspecified; E78.00 Pure hypercholesterolemia, unspecified; Z20.828 Contact with and (suspected) exposure to other viral communicable diseases; F94.0 Selective mutism; F29 Unspecified psychosis not due to a substance or known physiological condition; F41.9 Anxiety disorder, unspecified; G47.00 Insomnia, unspecified; K59.00 Constipation, unspecified; G40.909 Epilepsy, unspecified, not intractable, without status epilepticus; Z79.899 Other long term (current) drug therapy; Z79.84 Long term (current) use of oral hypoglycemic drugs; Z23 Encounter for immunization
CPT/HCPCS: 83735; 84100; 87426; 90732; G0378; G0480; J2060

== ENCOUNTER 2020-07-30 17:45 | Emergency (ER) | payer OTHER ==
[~2020-07-30] VITALS: Ht 175.3 cm; Wt 95.5 kg
[~2020-07-30 17:45] MED LIST changes: +BENZ1TAB10 PO; +CLOZ100T32 PO; -CLOZ100T37 PO; -QUET100T PO
[2020-07-30] MEDS ORDERED: LORazepam 2 MG/ML VIAL IVP ONE (19:30)
[2020-07-30 19:45] LABS: BASOPHILS % (AUTO) 0.4 % (0.0-2.0); EOSINOPHILS % (AUTO) 0.3 % (1.0-6.0); HEMATOCRIT 47.4 % (41-53); HEMOGLOBIN 16.3 g/dL (13.5-17.5); LYMPHOCYTES # (AUTO) 1.7 K/uL (1.0-4.8); LYMPHOCYTES % (AUTO) 20.4 % (22.0-44.0); MEAN CORPUSCULAR HEMOGLOBIN 31.4 pg (26.0-34.0); MEAN CORPUSCULAR HGB CONC 34.4 G/dL (31.0-37.0); MEAN CORPUSCULAR VOLUME 91 fL (80-100); MONOCYTES # (AUTO) 0.7 K/uL (0.1-1.0); MONOCYTES % (AUTO) 8.2 % (2.0-9.0); NEUTROPHILS # (AUTO) 5.8 K/uL (1.8-7.7); NEUTROPHILS % (AUTO) 70.7 % (40.0-70.0); PLATELET COUNT (AUTO) 241 K/uL (150-450); RED CELL DISTRIBUTION WIDTH 14.9 % (11.5-14.5)
[2020-07-30 19:54] LABS: ANION GAP 11 mmol/L (8-16); CALCIUM, TOTAL 9.3 mg/dL (8.8-10.5); CARBON DIOXIDE 25 mmol/L (22-29); CHLORIDE 103 mmol/L (98-107); CREATININE 0.84 mg/dL (0.60-1.30); GLOMERULAR FILTR. RATE CALC > 60 mL/min (>60); GLUCOSE,RANDOM 116 mg/dL (70-110); POTASSIUM 3.4 mmol/L (3.5-5.1); SODIUM SERUM 139 mmol/L (136-145); UREA NITROGEN, BLOOD 11 mg/dL (7-18)
[2020-07-30 19:59] LABS: ALANINE AMINOTRANSFERASE 29 U/L (12-78); ALBUMIN 4.1 g/dL (3.4-5.0); ALKALINE PHOSPHATASE 78 U/L (46-116); ASPARTATE AMINOTRANSFERASE 12 U/L (15-37); BILIRUBIN,TOTAL 0.3 mg/dL (0.1-1.0); TOTAL PROTEIN, SERUM 7.4 g/dL (6.4-8.2)
[2020-07-30] MEDS ORDERED: POTASSIUM CHLORIDE 10% 40 MEQ/30 ML LIQUID UDCUP PO ONE (20:30)
[2020-07-30] MEDS ORDERED: LORazepam 2 MG TABLET PO PRN (20:45)
[2020-07-30] MEDS ORDERED: OLANZapine 5 MG RAPDIS TABLET PO PRN (20:45)
[2020-07-30] MEDS ORDERED: ZOLPIDEM TARTRATE 10 MG TABLET PO PRN (20:45)
[2020-07-30 21:08] LABS: COVID AG,FIA SOURCE NASOPHARYNGEAL
[2020-07-30 21:30] VITALS: BP 136/86
== END 2020-07-30 21:40 | disposition home or self-care (01) ==
LOC: EMS 17:46
DX: F20.0 Paranoid schizophrenia (principal); E87.6 Hypokalemia; F41.9 Anxiety disorder, unspecified; E11.9 Type 2 diabetes mellitus without complications; I10 Essential (primary) hypertension; Z20.822 Contact with and (suspected) exposure to COVID-19; Z79.84 Long term (current) use of oral hypoglycemic drugs
CPT/HCPCS: 80053; 85025; 87426; 96374; 99285; G0480; J2060

== ENCOUNTER 2020-08-30 16:45 | Inpatient (IN) | payer MEDICARE, MEDICAID ==
[~2020-08-30] VITALS: Ht 170.2 cm; Wt 73.7 kg
[2020-08-30 18:10] LABS: BASOPHILS % (AUTO) 0.2 % (0.0-2.0); EOSINOPHILS % (AUTO) 0.7 % (1.0-6.0); HEMATOCRIT 54.2 % (41-53); HEMOGLOBIN 18.3 g/dL (13.5-17.5); LYMPHOCYTES # (AUTO) 1.7 K/uL (1.0-4.8); LYMPHOCYTES % (AUTO) 20.9 % (22.0-44.0); MEAN CORPUSCULAR HEMOGLOBIN 30.4 pg (26.0-34.0); MEAN CORPUSCULAR HGB CONC 33.8 G/dL (31.0-37.0); MEAN CORPUSCULAR VOLUME 90 fL (80-100); MONOCYTES # (AUTO) 0.7 K/uL (0.1-1.0); MONOCYTES % (AUTO) 8.9 % (2.0-9.0); NEUTROPHILS # (AUTO) 5.6 K/uL (1.8-7.7); NEUTROPHILS % (AUTO) 69.3 % (40.0-70.0); PLATELET COUNT (AUTO) 223 K/uL (150-450); RED BLOOD CELL COUNT(AUTO) 6.02 MIL/uL (4.50-5.90); RED CELL DISTRIBUTION WIDTH 13.7 % (11.5-14.5)
[2020-08-30 18:21] LABS: ANION GAP 16 mmol/L (8-16); CALCIUM, TOTAL 9.4 mg/dL (8.8-10.5); CARBON DIOXIDE 22 mmol/L (22-29); CHLORIDE 105 mmol/L (98-107); CREATININE 0.76 mg/dL (0.60-1.30); GLOMERULAR FILTR. RATE CALC > 60 mL/min (>60); GLUCOSE,RANDOM 114 mg/dL (70-110); POTASSIUM 3.4 mmol/L (3.5-5.1); SODIUM SERUM 143 mmol/L (136-145); UREA NITROGEN, BLOOD 17 mg/dL (7-18)
[2020-08-30 18:27] LABS: ALANINE AMINOTRANSFERASE 30 U/L (12-78); ALKALINE PHOSPHATASE 80 U/L (46-116); ASPARTATE AMINOTRANSFERASE 18 U/L (15-37); BILIRUBIN,TOTAL 0.5 mg/dL (0.1-1.0); TOTAL PROTEIN, SERUM 7.9 g/dL (6.4-8.2)
[2020-08-30 18:31] LABS: AMPHET/METH SCREEN,URINE NEGATIVE (NEGATIVE); BARBITURATE SCREEN, URINE NEGATIVE (NEGATIVE); BENZODIAZEPINES SCREEN,URINE NEGATIVE (NEGATIVE); CANNABINOID SCREEN,URINE NEGATIVE (NEGATIVE); COCAINE SCREEN,URINE NEGATIVE (NEGATIVE); METHADONE SCREEN, URINE NEGATIVE (NEGATIVE); OPIATE SCREEN,URINE NEGATIVE (NEGATIVE)
[2020-08-30 18:36] LABS: PHENCYCLIDINE SCREEN,URINE NEGATIVE (NEGATIVE)
[2020-08-30 19:22] LABS: COVID AG,FIA SOURCE NASOPHARYNGEAL
[2020-08-30] MEDS ORDERED: HALOPERIDOL 5 MG TABLET PO PRN (20:30)
[2020-08-30] MEDS ORDERED: ZOLPIDEM TARTRATE 10 MG TABLET PO PRN (20:30)
[2020-08-31 00:40] VITALS: BP 121/88
[2020-08-31] MEDS ORDERED: INFLUENZA VIRUS VACCINE QVS 2020-21 (6MO+)/PF 60 MCG/0.5 ML SYRINGE IM ONE (01:00)
[2020-08-31] MEDS ORDERED: BACITRACIN 28 GM OINTMENT TP PRN (07:45)
[2020-08-31] MEDS ORDERED: ACETAMINOPHEN 325 MG TABLET PO PRN (07:45)
[2020-08-31] MEDS ORDERED: DOCUSATE SODIUM 100 MG CAPSULE PO PRN (07:45)
[2020-08-31] MEDS ORDERED: LOPERAMIDE HCL 2 MG CAPSULE PO PRN (07:45)
[2020-08-31] MEDS ORDERED: CloNIDine HCL 0.1 MG TABLET PO PRN (07:45)
[2020-08-31] MEDS ORDERED: IBUPROFEN 600 MG TABLET PO PRN (07:45)
[2020-08-31] MEDS ORDERED: OMEPRAZOLE 20 MG CAPSULE PO PRN (07:45)
[2020-08-31] MEDS ORDERED: ALBUTEROL SULFATE HFA 90 MCG/PUFF 8 GM INHALER IH PRN (07:45)
[2020-08-31] MEDS ORDERED: ONDANSETRON HCL 4 MG TABLET PO PRN (07:45)
[2020-08-31] MEDS ORDERED: BENZOCAINE/MENTHOL LOZENGE PO PRN (07:45)
[2020-08-31] MEDS ORDERED: MAG HYDROX/AL HYDROX/SIMETH ES 30 ML SUSPENSION UDCUP PO PRN (07:45)
[2020-08-31] MEDS ORDERED: MAGNESIUM HYDROXIDE SUSPENSION 30 ML UDCUP PO PRN (07:45)
[2020-08-31] MEDS ORDERED: PETROLATUM,WHITE 28 GM JELLY TP PRN (07:45)
[2020-08-31] MEDS ORDERED: POTASSIUM CHLORIDE 20 MEQ ER TABLET PO ONE (07:45)
[2020-08-31 11:01] VITALS: BP 124/84
[2020-08-31] MEDS: LevETIRAcetam 250 MG TABLET PO SCH ×2 (13:06→17:25)
[2020-08-31 16:27] VITALS: BP 109/77
[2020-08-31] MEDS: MetFORMIN HCL 500 MG TABLET PO SCH (17:04)
[2020-09-01 06:45] VITALS: BP 105/75
[2020-09-01] MEDS: MetFORMIN HCL 500 MG TABLET PO SCH ×2 (06:45→16:26)
[2020-09-01] MEDS: LevETIRAcetam 250 MG TABLET PO SCH ×2 (08:00→16:26)
[2020-09-01 08:43] VITALS: BP 118/76
[2020-09-01] MEDS: LORazepam 2 MG TABLET PO PRN (11:07)
[2020-09-01 16:08] VITALS: BP 110/74
[2020-09-02 00:28] VITALS: BP 110/73
[2020-09-02] MEDS: MetFORMIN HCL 500 MG TABLET PO SCH ×2 (06:47→16:28)
[2020-09-02 07:43] LABS: BASOPHILS % (AUTO) 0.3 % (0.0-2.0); EOSINOPHILS % (AUTO) 2.1 % (1.0-6.0); HEMATOCRIT 51.7 % (41-53); HEMOGLOBIN 17.8 g/dL (13.5-17.5); LYMPHOCYTES # (AUTO) 1.7 K/uL (1.0-4.8); MEAN CORPUSCULAR HEMOGLOBIN 31.3 pg (26.0-34.0); MEAN CORPUSCULAR HGB CONC 34.4 G/dL (31.0-37.0); MEAN CORPUSCULAR VOLUME 91 fL (80-100); MONOCYTES # (AUTO) 0.5 K/uL (0.1-1.0); MONOCYTES % (AUTO) 9.2 % (2.0-9.0); NEUTROPHILS # (AUTO) 3.3 K/uL (1.8-7.7); NEUTROPHILS % (AUTO) 58.4 % (40.0-70.0); PLATELET COUNT (AUTO) 189 K/uL (150-450); RED BLOOD CELL COUNT(AUTO) 5.68 MIL/uL (4.50-5.90); RED CELL DISTRIBUTION WIDTH 13.7 % (11.5-14.5)
[2020-09-02 07:50] LABS: HEMOGLOBIN A1C 6.4 % (3.8-5.6)
[2020-09-02 07:56] LABS: CHOL/HDL RATIO 7.7 (4.2-7.3); MAGNESIUM 1.9 mg/dL (1.80-2.40); PHOSPHORUS 4.2 mg/dL (2.5-4.9); POTASSIUM 4.3 mmol/L (3.5-5.1)
[2020-09-02] MEDS: LevETIRAcetam 250 MG TABLET PO SCH ×2 (08:15→16:28)
[2020-09-02 08:18] LABS: FREE T4 (FREE THYROXINE) 3.9 ng/dL (0.76-1.46)
[2020-09-02 08:21] VITALS: BP 132/75
[2020-09-02 08:54] LABS: THYROID STIMULATING HORMONE 0.04 uIU/mL (0.36-3.74)
[2020-09-02] MEDS ORDERED: CloZAPine 25 MG TABLET PO SCH (09:00)
[2020-09-02] MEDS: LORazepam 2 MG TABLET PO PRN (15:40)
[2020-09-02 16:18] VITALS: BP 129/83
[2020-09-03 02:19] VITALS: BP 117/70
[2020-09-03] MEDS: MetFORMIN HCL 500 MG TABLET PO SCH ×2 (07:14→16:18)
[2020-09-03 08:20] VITALS: BP 129/86
[2020-09-03] MEDS: LevETIRAcetam 250 MG TABLET PO SCH ×2 (08:22→16:19)
[2020-09-03] MEDS ORDERED: CloZAPine 25 MG TABLET PO SCH ×2 (09:00→21:00)
[2020-09-03] MEDS: LORazepam 2 MG TABLET PO PRN ×2 (11:47→16:18)
[2020-09-03 16:22] VITALS: BP 137/89
[2020-09-03] MEDS: SIMVASTATIN 10 MG TABLET PO SCH (20:29)
[2020-09-04 04:40] VITALS: BP 127/82
[2020-09-04] MEDS: MetFORMIN HCL 500 MG TABLET PO SCH ×2 (06:36→15:53)
[2020-09-04 07:46] LABS: COVID AG,FIA SOURCE NASOPHARYNGEAL
[2020-09-04 08:15] VITALS: BP 116/76
[2020-09-04] MEDS: LevETIRAcetam 250 MG TABLET PO SCH ×2 (08:32→15:53)
[2020-09-04] MEDS ORDERED: CloZAPine 25 MG TABLET PO SCH ×2 (09:00→21:00)
[2020-09-04] MEDS: LORazepam 2 MG TABLET PO PRN (16:44)
[2020-09-04 16:45] VITALS: BP 137/94
[2020-09-04] MEDS: SIMVASTATIN 10 MG TABLET PO SCH (20:40)
[2020-09-05 06:27] VITALS: BP 117/81
[2020-09-05] MEDS: MetFORMIN HCL 500 MG TABLET PO SCH ×2 (06:40→16:41)
[2020-09-05] MEDS: CloZAPine 100 MG TABLET PO SCH ×2 (08:08→20:33)
[2020-09-05] MEDS: LevETIRAcetam 250 MG TABLET PO SCH ×2 (08:08→16:41)
[2020-09-05] MEDS: BENZTROPINE MESYLATE 1 MG TABLET PO SCH ×2 (08:08→16:41)
[2020-09-05 08:19] VITALS: BP 110/69
[2020-09-05] MEDS ORDERED: CloZAPine 25 MG TABLET PO SCH (09:00)
[2020-09-05 16:15] VITALS: BP 108/68
[2020-09-05] MEDS: LORazepam 2 MG TABLET PO PRN (17:40)
[2020-09-05] MEDS: SIMVASTATIN 10 MG TABLET PO SCH (20:33)
[2020-09-06 06:29] VITALS: BP 101/65
[2020-09-06] MEDS: MetFORMIN HCL 500 MG TABLET PO SCH ×2 (06:37→16:00)
[2020-09-06 08:10] VITALS: BP 110/90
[2020-09-06] MEDS: LevETIRAcetam 250 MG TABLET PO SCH ×2 (08:23→16:00)
[2020-09-06] MEDS: BENZTROPINE MESYLATE 1 MG TABLET PO SCH ×2 (08:23→16:00)
[2020-09-06] MEDS: CloZAPine 100 MG TABLET PO SCH ×2 (08:24→20:54)
[2020-09-06 16:35] VITALS: BP 128/88
[2020-09-06] MEDS: LORazepam 2 MG TABLET PO PRN (18:20)
[2020-09-06] MEDS: SIMVASTATIN 10 MG TABLET PO SCH (20:54)
[2020-09-07 05:12] VITALS: BP 112/79
[2020-09-07] MEDS: MetFORMIN HCL 500 MG TABLET PO SCH ×2 (06:54→16:10)
[2020-09-07] MEDS: CloZAPine 100 MG TABLET PO SCH ×2 (08:13→20:18)
[2020-09-07] MEDS: BENZTROPINE MESYLATE 1 MG TABLET PO SCH ×2 (08:13→16:10)
[2020-09-07] MEDS: OMEGA-3/DHA/EPA/FISH OIL 1,000 MG CAPSULE PO SCH (08:13)
[2020-09-07] MEDS: LevETIRAcetam 250 MG TABLET PO SCH ×2 (08:13→16:10)
[2020-09-07 08:42] VITALS: BP 108/76
[2020-09-07] MEDS ORDERED: CloZAPine 25 MG TABLET PO SCH (09:00)
[2020-09-07 16:18] VITALS: BP 115/72
[2020-09-07] MEDS: LORazepam 2 MG TABLET PO PRN (16:19)
[2020-09-07] MEDS: SIMVASTATIN 10 MG TABLET PO SCH (20:18)
[2020-09-07] MEDS ORDERED: CloZAPine 100 MG TABLET PO SCH (21:00)
[2020-09-08 00:46] VITALS: BP 109/77
[2020-09-08] MEDS: MetFORMIN HCL 500 MG TABLET PO SCH ×2 (06:37→16:25)
[2020-09-08 07:31] LABS: HEMOGLOBIN 16.5 g/dL (13.5-17.5); MEAN CORPUSCULAR HGB CONC 34.4 G/dL (31.0-37.0); MEAN CORPUSCULAR VOLUME 90 fL (80-100); PLATELET COUNT (AUTO) 212 K/uL (150-450); RED BLOOD CELL COUNT(AUTO) 5.34 MIL/uL (4.50-5.90); RED CELL DISTRIBUTION WIDTH 13.3 % (11.5-14.5)
[2020-09-08 07:48] LABS: ANION GAP 9 mmol/L (8-16); CALCIUM, TOTAL 8.8 mg/dL (8.8-10.5); CARBON DIOXIDE 27 mmol/L (22-29); CHLORIDE 105 mmol/L (98-107); CREATININE 0.96 mg/dL (0.60-1.30); GLOMERULAR FILTR. RATE CALC > 60 mL/min (>60); GLUCOSE,RANDOM 102 mg/dL (70-110); PHOSPHORUS 3.7 mg/dL (2.5-4.9); POTASSIUM 4.3 mmol/L (3.5-5.1); SODIUM SERUM 141 mmol/L (136-145); UREA NITROGEN, BLOOD 17 mg/dL (7-18)
[2020-09-08 08:00] VITALS: BP 113/74
[2020-09-08] MEDS: OMEGA-3/DHA/EPA/FISH OIL 1,000 MG CAPSULE PO SCH (08:20)
[2020-09-08] MEDS: MULTIVITAMINS WITH MINERALS, THERAPEUTIC TABLET PO SCH (08:20)
[2020-09-08] MEDS: BENZTROPINE MESYLATE 1 MG TABLET PO SCH ×2 (08:20→16:26)
[2020-09-08] MEDS: CloZAPine 100 MG TABLET PO SCH ×2 (08:20→20:56)
[2020-09-08] MEDS: LevETIRAcetam 250 MG TABLET PO SCH ×2 (08:21→16:25)
[2020-09-08] MEDS ORDERED: CloZAPine 25 MG TABLET PO SCH (09:00)
[2020-09-08 09:27] LABS: BAND NEUTROPHILS % (MANUAL) 1 % (0-5); EOSINOPHILS % (MANUAL) 2 % (1-6); LYMPHOCYTES % (MANUAL) 35 % (22-44); MONOCYTES % (MANUAL) 9 % (2-9); SEGMENTED NEUTROPHILS % 53 % (40-70)
[2020-09-08] MEDS: LORazepam 2 MG TABLET PO PRN (14:58)
[2020-09-08 16:10] VITALS: BP 138/85
[2020-09-08] MEDS: SIMVASTATIN 10 MG TABLET PO SCH (20:56)
[2020-09-08] MEDS ORDERED: CloZAPine 100 MG TABLET PO SCH (21:00)
[2020-09-09 06:27] VITALS: BP 94/64
[2020-09-09] MEDS: MetFORMIN HCL 500 MG TABLET PO SCH (06:31)
[2020-09-09] MEDS: CloZAPine 100 MG TABLET PO SCH (08:44)
[2020-09-09] MEDS: MULTIVITAMINS WITH MINERALS, THERAPEUTIC TABLET PO SCH (08:44)
[2020-09-09] MEDS: BENZTROPINE MESYLATE 1 MG TABLET PO SCH (08:44)
[2020-09-09] MEDS: OMEGA-3/DHA/EPA/FISH OIL 1,000 MG CAPSULE PO SCH (08:44)
[2020-09-09] MEDS: LevETIRAcetam 250 MG TABLET PO SCH (08:45)
[2020-09-09] MEDS ORDERED: CloZAPine 25 MG TABLET PO SCH (09:00)
[2020-09-09 09:13] VITALS: BP 113/80
[2020-09-09] MEDS ORDERED: CLOZ100T32 PO ×2 (12:43)
[2020-09-09] MEDS ORDERED: LEVE250T55 PO (12:44)
[2020-09-09] MEDS ORDERED: METF-960 PO (12:46)
[2020-09-09] MEDS ORDERED: SIMV-259 PO (12:46)
[2020-09-09] MEDS ORDERED: CloZAPine 100 MG TABLET PO SCH (21:00)
[2020-09-10] MEDS ORDERED: CloZAPine 100 MG TABLET PO SCH (09:00)
[2020-09-12] MEDS ORDERED: CloZAPine 25 MG TABLET PO SCH (09:00)
[2020-09-12] MEDS ORDERED: CloZAPine 100 MG TABLET PO SCH (21:00)
[2020-09-13] MEDS ORDERED: CloZAPine 25 MG TABLET PO SCH (09:00)
[2020-09-13] MEDS ORDERED: CloZAPine 100 MG TABLET PO SCH (21:00)
[2020-09-14] MEDS ORDERED: CloZAPine 100 MG TABLET PO SCH ×2 (09:00→21:00)
== END 2020-09-09 15:30 | disposition home or self-care (01) | DRG 885 ==
LOC: EMS 16:45 → B2S 20:23
PROVIDERS: ADMIT Psychiatry & Neurology Psychiatry; ATTEND Psychiatry & Neurology Psychiatry
DX: F20.0 Paranoid schizophrenia (principal); F20.2 Catatonic schizophrenia; E11.9 Type 2 diabetes mellitus without complications; E78.00 Pure hypercholesterolemia, unspecified; E78.1 Pure hyperglyceridemia; F10.10 Alcohol abuse, uncomplicated; I10 Essential (primary) hypertension; F41.9 Anxiety disorder, unspecified; Z72.0 Tobacco use; K59.00 Constipation, unspecified; Z20.822 Contact with and (suspected) exposure to COVID-19
CPT/HCPCS: 83036; 83735; 84100; 84132; 84439; 84443; 85007; 87426; 99285; G0480

== ENCOUNTER 2022-12-21 16:17 | Inpatient (IN) | payer OTHER, MEDICAID ==
[~2022-12-21] VITALS: Ht 175.3 cm; Wt 66.0 kg
[~2022-12-21 16:17] MED LIST changes: -BENZ1TAB10 PO; +BENZ2TAB71 PO; -CLOZ100T32 PO; +CLOZ100T68 PO; +EMPA10TA3 PO; +LEVE250T4 PO; -LEVE250T55 PO; +METF-1211 PO; -METF-446 PO; +SIMV-259 PO
[2022-12-21] MEDS ORDERED: HALOPERIDOL 5 MG TABLET PO PRN (17:45)
[2022-12-21] MEDS ORDERED: ZOLPIDEM TARTRATE 10 MG TABLET PO PRN (17:45)
[2022-12-21 19:04] LABS: BASOPHILS % (AUTO) 0.5 % (0.0-2.0); EOSINOPHILS % (AUTO) 0.1 % (1.0-6.0); HEMOGLOBIN 17.2 g/dL (13.5-17.5); LYMPHOCYTES # (AUTO) 1.7 K/uL (1.0-4.8); LYMPHOCYTES % (AUTO) 18.2 % (22.0-44.0); MEAN CORPUSCULAR HEMOGLOBIN 30.9 pg (26.0-34.0); MEAN CORPUSCULAR HGB CONC 33.8 G/dL (31.0-37.0); MEAN CORPUSCULAR VOLUME 92 fL (80-100); MONOCYTES # (AUTO) 0.9 K/uL (0.1-1.0); MONOCYTES % (AUTO) 9.3 % (2.0-9.0); NEUTROPHILS # (AUTO) 6.7 K/uL (1.8-7.7); NEUTROPHILS % (AUTO) 71.9 % (40.0-70.0); PLATELET COUNT (AUTO) 319 K/uL (150-450); RED BLOOD CELL COUNT(AUTO) 5.57 MIL/uL (4.50-5.90)
[2022-12-21 19:19] LABS: ANION GAP 24 mmol/L (8-16); CARBON DIOXIDE 25 mmol/L (22-29); CHLORIDE 102 mmol/L (98-107); CREATININE 0.87 mg/dL (0.60-1.30); GLOMERULAR FILTR. RATE CALC > 60 mL/min (>60); GLUCOSE,RANDOM 75 mg/dL (70-110); POTASSIUM 4.4 mmol/L (3.5-5.1); SODIUM SERUM 151 mmol/L (136-145)
[2022-12-21 19:24] LABS: ALANINE AMINOTRANSFERASE 12 U/L (12-78); ALBUMIN 4.6 g/dL (3.4-5.0); ALKALINE PHOSPHATASE 86 U/L (46-116); ASPARTATE AMINOTRANSFERASE 10 U/L (15-37); BILIRUBIN,TOTAL 0.5 mg/dL (0.1-1.0); TOTAL PROTEIN, SERUM 8.1 g/dL (6.4-8.2)
[2022-12-21] MEDS ORDERED: BENZTROPINE MESYLATE 2 MG TABLET PO ONE (19:30)
[2022-12-21] MEDS ORDERED: CloZAPine 100 MG TABLET PO ONE (19:30)
[2022-12-21] MEDS ORDERED: LevETIRAcetam 250 MG TABLET PO ONE (19:30)
[2022-12-21 21:21] LABS: COVID AG,FIA SOURCE NASAL SWAB
[2022-12-21 22:50] VITALS: BP 110/82; PULSE 101; RESP 18; TEMP 97.8; O2SAT 98
[2022-12-21] MEDS ORDERED: -PHARMACY VACCINE NOTE- MISC ONE (23:45)
[2022-12-22 08:20] VITALS: BP 113/77; PULSE 109; RESP 17; TEMP 98.2; O2SAT 99
[2022-12-22] MEDS: EMPAGLIFLOZIN 10 MG TABLET PO SCH (12:35)
[2022-12-22] MEDS: LevETIRAcetam 250 MG TABLET PO SCH ×2 (12:36→16:33)
[2022-12-22] MEDS: MetFORMIN HCL 500 MG TABLET PO SCH (16:32)
[2022-12-22] MEDS: CloZAPine 100 MG TABLET PO SCH (16:32)
[2022-12-22] MEDS: SIMVASTATIN 10 MG TABLET PO SCH (20:49)
[2022-12-22] MEDS: BENZTROPINE MESYLATE 2 MG TABLET PO SCH (20:49)
[2022-12-22 21:19] VITALS: BP 114/77; PULSE 101; RESP 18; TEMP 98; O2SAT 98
[2022-12-23] MEDS: MetFORMIN HCL 500 MG TABLET PO SCH ×2 (06:58→16:49)
[2022-12-23 08:42] VITALS: BP 109/76; PULSE 101; RESP 17; TEMP 97.8; O2SAT 98
[2022-12-23] MEDS: CloZAPine 100 MG TABLET PO SCH ×2 (08:49→16:49)
[2022-12-23] MEDS: EMPAGLIFLOZIN 10 MG TABLET PO SCH (08:49)
[2022-12-23] MEDS: LevETIRAcetam 250 MG TABLET PO SCH ×2 (08:49→16:49)
[2022-12-23 09:23] LABS: HEMATOCRIT 52.3 % (41-53); HEMOGLOBIN 17.8 g/dL (13.5-17.5); MEAN CORPUSCULAR HEMOGLOBIN 31.4 pg (26.0-34.0); MEAN CORPUSCULAR HGB CONC 34.1 G/dL (31.0-37.0); MEAN CORPUSCULAR VOLUME 92 fL (80-100); PLATELET COUNT (AUTO) 311 K/uL (150-450); RED BLOOD CELL COUNT(AUTO) 5.68 MIL/uL (4.50-5.90); RED CELL DISTRIBUTION WIDTH 14.2 % (11.5-14.5)
[2022-12-23 09:35] LABS: ANION GAP 13 mmol/L (8-16); CALCIUM, TOTAL 10.1 mg/dL (8.8-10.5); CARBON DIOXIDE 28 mmol/L (22-29); CHLORIDE 101 mmol/L (98-107); CREATININE 0.98 mg/dL (0.60-1.30); GLOMERULAR FILTR. RATE CALC > 60 mL/min (>60); GLUCOSE,RANDOM 143 mg/dL (70-110); POTASSIUM 4.2 mmol/L (3.5-5.1); SODIUM SERUM 142 mmol/L (136-145)
[2022-12-23 10:00] LABS: BAND NEUTROPHILS % (MANUAL) 1 % (0-5); LYMPHOCYTES % (MANUAL) 21 % (22-44); MONOCYTES % (MANUAL) 8 % (2-9); SEGMENTED NEUTROPHILS % 70 % (40-70)
[2022-12-23 10:04] LABS: PLATELET MORPHOLOGY COMMENT LARGE PLTS PRESENT
[2022-12-23] MEDS: BENZTROPINE MESYLATE 2 MG TABLET PO SCH (20:28)
[2022-12-23] MEDS: SIMVASTATIN 10 MG TABLET PO SCH (20:28)
[2022-12-23 20:36] VITALS: BP 110/82; PULSE 100; RESP 18; TEMP 97.6; O2SAT 100
[2022-12-24] MEDS: MetFORMIN HCL 500 MG TABLET PO SCH ×2 (06:39→16:50)
[2022-12-24] MEDS: CloZAPine 100 MG TABLET PO SCH ×2 (08:25→16:50)
[2022-12-24] MEDS: LevETIRAcetam 250 MG TABLET PO SCH ×2 (08:25→16:50)
[2022-12-24] MEDS: EMPAGLIFLOZIN 10 MG TABLET PO SCH (08:25)
[2022-12-24 08:28] VITALS: BP 113/80; PULSE 75; RESP 17; TEMP 97; O2SAT 99
[2022-12-24 15:31] VITALS: BP 115/84
[2022-12-24] MEDS: LORazepam 2 MG TABLET PO PRN (15:38)
[2022-12-24] MEDS: SIMVASTATIN 10 MG TABLET PO SCH (20:32)
[2022-12-24] MEDS: BENZTROPINE MESYLATE 2 MG TABLET PO SCH (20:32)
[2022-12-24 22:48] VITALS: BP 102/66; PULSE 100; RESP 18; TEMP 97.2; O2SAT 100
[2022-12-25] MEDS: MetFORMIN HCL 500 MG TABLET PO SCH ×2 (06:26→16:28)
[2022-12-25 08:26] VITALS: BP 114/84; PULSE 76; RESP 17; TEMP 98; O2SAT 98
[2022-12-25] MEDS: EMPAGLIFLOZIN 10 MG TABLET PO SCH (08:35)
[2022-12-25] MEDS: CloZAPine 100 MG TABLET PO SCH ×2 (08:35→16:28)
[2022-12-25] MEDS: LevETIRAcetam 250 MG TABLET PO SCH ×2 (08:35→16:28)
[2022-12-25] MEDS: BENZTROPINE MESYLATE 2 MG TABLET PO SCH (20:11)
[2022-12-25] MEDS: SIMVASTATIN 10 MG TABLET PO SCH (20:11)
[2022-12-25 20:26] VITALS: BP 120/90; PULSE 100; RESP 17; TEMP 97; O2SAT 99
[2022-12-26] MEDS: MetFORMIN HCL 500 MG TABLET PO SCH ×2 (06:32→16:06)
[2022-12-26] MEDS: EMPAGLIFLOZIN 10 MG TABLET PO SCH (08:14)
[2022-12-26] MEDS: CloZAPine 100 MG TABLET PO SCH ×2 (08:14→16:06)
[2022-12-26] MEDS: LevETIRAcetam 250 MG TABLET PO SCH ×2 (08:14→16:06)
[2022-12-26 08:22] VITALS: BP 139/94; PULSE 92; RESP 18; TEMP 97.2; O2SAT 100
[2022-12-26] MEDS: LORazepam 2 MG TABLET PO PRN (16:06)
[2022-12-26 20:14] VITALS: BP 121/73; PULSE 86; RESP 18; TEMP 98.2; O2SAT 98
[2022-12-26] MEDS: BENZTROPINE MESYLATE 2 MG TABLET PO SCH (20:43)
[2022-12-26] MEDS: SIMVASTATIN 10 MG TABLET PO SCH (20:43)
[2022-12-27] MEDS: MetFORMIN HCL 500 MG TABLET PO SCH ×2 (06:42→16:35)
[2022-12-27] MEDS: LevETIRAcetam 250 MG TABLET PO SCH ×2 (08:09→16:35)
[2022-12-27] MEDS: EMPAGLIFLOZIN 10 MG TABLET PO SCH (08:09)
[2022-12-27] MEDS: CloZAPine 100 MG TABLET PO SCH ×2 (08:09→16:35)
[2022-12-27 09:10] VITALS: BP 111/74; PULSE 110; RESP 17; TEMP 97.3; O2SAT 100
[2022-12-27 20:05] VITALS: BP 132/85; PULSE 121; RESP 18; TEMP 98.8; O2SAT 99
[2022-12-27] MEDS: SIMVASTATIN 10 MG TABLET PO SCH (20:30)
[2022-12-27] MEDS: BENZTROPINE MESYLATE 2 MG TABLET PO SCH (20:30)
[2022-12-28] MEDS: MetFORMIN HCL 500 MG TABLET PO SCH ×2 (06:28→16:22)
[2022-12-28] MEDS: EMPAGLIFLOZIN 10 MG TABLET PO SCH (08:17)
[2022-12-28] MEDS: LevETIRAcetam 250 MG TABLET PO SCH ×2 (08:17→16:24)
[2022-12-28] MEDS: CloZAPine 100 MG TABLET PO SCH ×2 (08:17→16:22)
[2022-12-28 08:30] VITALS: BP 126/79; PULSE 79; RESP 20; TEMP 98; O2SAT 98
[2022-12-28 08:48] LABS: BASOPHILS % (AUTO) 0.1 % (0.0-2.0); EOSINOPHILS % (AUTO) 0.4 % (1.0-6.0); HEMATOCRIT 49.7 % (41-53); HEMOGLOBIN 16.5 g/dL (13.5-17.5); LYMPHOCYTES # (AUTO) 1.9 K/uL (1.0-4.8); LYMPHOCYTES % (AUTO) 24.8 % (22.0-44.0); MEAN CORPUSCULAR HEMOGLOBIN 30.3 pg (26.0-34.0); MEAN CORPUSCULAR HGB CONC 33.3 G/dL (31.0-37.0); MEAN CORPUSCULAR VOLUME 91 fL (80-100); MONOCYTES # (AUTO) 0.7 K/uL (0.1-1.0); MONOCYTES % (AUTO) 9.2 % (2.0-9.0); NEUTROPHILS % (AUTO) 65.5 % (40.0-70.0); PLATELET COUNT (AUTO) 298 K/uL (150-450); RED BLOOD CELL COUNT(AUTO) 5.46 MIL/uL (4.50-5.90); RED CELL DISTRIBUTION WIDTH 13.5 % (11.5-14.5)
[2022-12-28] MEDS: LORazepam 2 MG TABLET PO PRN (12:13)
[2022-12-28] MEDS ORDERED: NICOTINE 21 MG/24 HOUR PATCH TD PRN (18:15)
[2022-12-28 20:19] VITALS: BP 100/65; PULSE 76; RESP 18; TEMP 98.3; O2SAT 98
[2022-12-28] MEDS: SIMVASTATIN 10 MG TABLET PO SCH (20:22)
[2022-12-28] MEDS: BENZTROPINE MESYLATE 2 MG TABLET PO SCH (20:22)
[2022-12-29] MEDS: LORazepam 2 MG TABLET PO PRN (06:33)
[2022-12-29] MEDS: MetFORMIN HCL 500 MG TABLET PO SCH (06:59)
[2022-12-29] MEDS: CloZAPine 100 MG TABLET PO SCH (08:29)
[2022-12-29] MEDS: EMPAGLIFLOZIN 10 MG TABLET PO SCH (08:29)
[2022-12-29] MEDS: LevETIRAcetam 250 MG TABLET PO SCH (08:29)
[2022-12-29 08:43] VITALS: BP 114/74; PULSE 100; RESP 18; TEMP 98; O2SAT 100
[2022-12-29] MEDS ORDERED: CLOZ100T61 PO (11:48)
== END 2022-12-29 17:23 | disposition home or self-care (01) | DRG 885 ==
LOC: EMS 16:17 → B2S 22:21 → EMS 22:25
PROVIDERS: ADMIT Psychiatry & Neurology Child & Adolescent Psychiatry; ATTEND Psychiatry & Neurology Child & Adolescent Psychiatry
DX: F20.0 Paranoid schizophrenia (principal); E87.0 Hyperosmolality and hypernatremia; I10 Essential (primary) hypertension; G40.909 Epilepsy, unspecified, not intractable, without status epilepticus; E11.9 Type 2 diabetes mellitus without complications; E78.5 Hyperlipidemia, unspecified; Z20.822 Contact with and (suspected) exposure to COVID-19; F41.9 Anxiety disorder, unspecified; F32.A Depression, unspecified; Z79.84 Long term (current) use of oral hypoglycemic drugs; Z79.899 Other long term (current) drug therapy
CPT/HCPCS: 80048; 80053; 84295; 85007; 85025; 85027; 87081; 99285; G0480; Q9967